=== PATIENT | male | born 1945 | race Caucasian/White ===

== ENCOUNTER 2018-04-19 08:32 | Inpatient (IN) | payer MEDICARE ==
[~2018-04-19 08:32] MED LIST: Acetaminophen TAB* 325 MG PO ONE; Buffered Lidocaine 1% SYRIN* 1 ML/SYRINGE INTRADERM ONE; Famotidine IV* 10 MG/ML 2 ML (20 mg) IV ONE; Gabapentin CAP(*) 300 MG PO ONE; Lactated Ringers 1000 ML Bag* 1,000 ML IV SCH; Naproxen TAB* 250 MG PO ONE
--- OUTSIDE RECORDS SUMMARY | 2018-04-19 08:37 | XMS REPORT | Continuity of Care Document ---
:1945 External Reference #:[id number] Author Name Betina Palafox Care Team Providers Name Role Phone Italia Kruse MD Primary Care Physician Unavailable Payers Type Date Identification Numbers Payment Provider Subscriber Policy Number: [id number] Medicare Blue Ppo Dameon Myles PayID: [id number] [address] [address] [place] [address] Advance Directives Description No Information Available Problems Date Description Provider Status Onset: 03/26/2018 Pain due to internal orthopedic Alexy Gaxiola M.D. Active prosthetic devices, implants and grafts, initial encounter Onset: 03/26/2018 Prosthetic arthroplasty of the hip Alexy Gaxiola M.D. Active Family History Date Family Member(s) Problem(s) Comments General Diabetes General Heart Disease General Hypertension General Stroke Social History Type Date Description Comments Sex Unknown Lives With Spouse Occupation Retired Tobacco Use Start: Unknown Patient has never smoked Smoking Status Reviewed: 03/26/18 Patient has never smoked Allergies, Adverse Reactions, Alerts Date Description Reaction Status Severity Comments 02/18/2018 Brilinta Active panic attack 02/18/2018 Allopurinol Active itching Medications Medication Date Status Form Strength Qnty SIG Indications Ordering Provider Ultram 03/04 Active Tablets 50mg 90tab 2 tab every M25.551 /2018 s 6 hours as Minor, needed for M.D. pain, take with 2 regular strength tylenol Metoprolol Active Tablets 50mg 1 by mouth Unknown Succinate ER /0000 ER 24HR every day Atorvastatin Active Tablets 40mg 1 by mouth Unknown Calcium / every day Terazosin HCL Active Capsules 1mg take 1 Unknown / capsule by mouth everyday at bedtime Chlorthalidone Active Tablets 25mg 1 by mouth Unknown /0000 every day Uloric Active Tablets 40mg 1 by mouth Unknown /0000 every day Amlodipine 00 Active Tablets 10mg 1 by mouth Unknown Bes every day Aspirin Active Tablets 81mg 1 by mouth Unknown /0000 DR every day Vitamin D 00 Active Tablets 1000Unit by mouth Unknown /0000 everyday Garlic Active Capsules 1000mg 2 by mouth Unknown /0000 every day Calcium Carbonate Active Unknown / Magnesium Active Unknown / Methylprednisolone 02/18 Hx TBPK 4mg 21uni medrol M25.551 ts dosepak F - take as Bernard, 03/03 instructed Immunizations Description No Information Available Vital Signs Date Vital Result Comment 03/26/2018 9:08am Height 70 inches 5'10" Weight 249.00 lb Heart Rate 76 /min BP Systolic Recheck 132 mmHg BP Diastolic Recheck 84 mmHg Respiratory Rate 16 /min Body Temperature 97.9 F BMI (Body Mass Index) 35.7 kg/m2 03/04/2018 11:27am Height 70 inches 5'10" Weight 245.00 lb Heart Rate 84 /min BP Systolic Recheck 142 mmHg BP Diastolic Recheck 84 mmHg Respiratory Rate 16 /min Body Temperature 98.0 F BMI (Body Mass Index) 35.1 kg/m2 02/18/2018 9:48am Height 70 inches 5'10" Weight 245.00 lb BP Systolic 160 mmHg BP Diastolic 90 mmHg Respiratory Rate 20 /min Body Temperature 98.3 F Pain Level 5 BMI (Body Mass Index) 35.1 kg/m2 Results Description No Information Available Procedures Date Code Description Status 11/16/2012 78185 ECHO Transthorasic Realtime 2D W Doppler & Color Flow Hosp Completed Encounters Type Date Location Provider Dx Diagnosis Office Visit 03/04/2018 Orthopedic Alexy Gaxiola, M25.551 Pain in right hip 11:30a [facility] Z96.641 Presence of right artificial hip joint T84.84xA Pain due to internal orthopedic prosth dev/grft, init Office Visit 02/18/2018 9:15a Orthopedic Ronal Sharma M25.551 Pain in [facility] MD right hip Z96.641 Presence of right artificial hip joint M61.9 Calcification and ossification of muscle, unspecified Plan of Treatment 03/26/2018 - Alexy Gaxiola M.D.T84.84xA Pain due to internal orthopedic prosthetic devices, [id number] Presence of right artificial hip jointFollow up:4 weeks after surgery
[2018-04-19] MEDS ORDERED: Famotidine IV* 10 MG/ML 2 ML (20 mg) ONE (09:01)
[2018-04-19] MEDS ORDERED: Gabapentin CAP(*) 300 MG ONE (09:01)
[2018-04-19] MEDS ORDERED: Dexamethasone IV* 4 MG/ML 1 ML (4 MG) ONE (09:02)
[2018-04-19] MEDS ORDERED: Propofol* 10 MG/ML 20 ML BTL ONE (09:02)
[2018-04-19] MEDS ORDERED: Midazolam* 1 MG/ML 5 ML VIAL (5 MG) ONE (09:02)
[2018-04-19] MEDS ORDERED: fentaNYL* 50 MCG/ML 5 ML VIAL (250 MCG VIAL) ONE ×4 (09:02→15:59)
[2018-04-19] MEDS ORDERED: Lidocaine 2% PF * 5 ML VIAL ONE (09:02)
[2018-04-19] MEDS ORDERED: Ondansetron INJ* 2 MG/ML VIAL ONE (09:02)
[2018-04-19] MEDS ORDERED: Acetaminophen TAB* 325 MG ONE ×2 (09:02→09:17)
[2018-04-19] MEDS ORDERED: ceFAZolin 2 GM PREMIX in ORs 2 GM/50 ML BAG IVPB ONE ×2 (09:02→15:06)
[2018-04-19] MEDS ORDERED: Vancomycin(*) 1,000 MG VIAL ONE ×2 (09:45→10:30)
[2018-04-19] MEDS ORDERED: Methylene Blue 0.5 %* 50 MG/10 ML AMP IV ONE (09:46)
[2018-04-19] MEDS ORDERED: Phenylephrine INJ* 10 MG/ML 1 ML VIAL (10 MG) ONE (09:48)
[2018-04-19] MEDS ORDERED: Lidocaine 1% MPF wEPI 200,000* 30 ML SDV ONE ×2 (10:30→16:29)
[2018-04-19] MEDS ORDERED: Bupivacaine 0.5%* 50 ML VIAL ONE ×2 (10:31→16:29)
[2018-04-19] MEDS ORDERED: Rocuronium* 10 MG/ML VIAL ONE (10:40)
[2018-04-19] MEDS ORDERED: EPHEDrine (Pressors)* 50 MG/ML VIAL ONE (11:25)
[2018-04-19] MEDS ORDERED: HYDROmorphone INJ1* 1 MG/ML SYRINGE ONE (12:17)
[2018-04-19] MEDS ORDERED: Furosemide IV* 10 MG/ML 2 ML VIAL (20 MG) ONE (14:15)
[2018-04-19 15:52] LABS: Hematocrit 34 % (42-52); Hemoglobin 11.5 g/dl (14.0-18.0)
[2018-04-19] MEDS ORDERED: VASOPRESSIN 20 UNITS/ML 1 ML VIAL ONE (16:24)
[2018-04-19] MEDS ORDERED: Lidocain 1% EPI 1:100,000 * 30 ML MDV ONE (16:29)
[2018-04-19] MEDS ORDERED: Ondansetron INJ* 2 MG/ML VIAL IV PRN ×2 (16:57→17:14)
[2018-04-19] MEDS ORDERED: fentaNYL* 50 MCG/ML 2 ML VIAL (100 MCG VIAL) IV PRN (16:57)
[2018-04-19] MEDS ORDERED: Naloxone* 0.4 MG/ML 1 ML VIAL IV PRN (16:57)
[2018-04-19] MEDS ORDERED: diPHENhydraMINE IV* 50 MG/ML 1 ml VIAL (BENADRYL) IV PRN (17:14)
[2018-04-19] MEDS ORDERED: Magnesium Hydroxide LIQ* 30 ML UDC PO PRN (17:14)
[2018-04-19] MEDS ORDERED: Ondansetron ODT TAB* 4 MG PO PRN (17:14)
[2018-04-19] MEDS ORDERED: Cyclobenzaprine TAB* 10 MG PO PRN (17:14)
[2018-04-19] MEDS ORDERED: Morphine VIAL* 4 MG/ML VIAL (1 ml vial) IV PRN (17:14)
[2018-04-19] MEDS ORDERED: diPHENhydraMINE PO* 25 MG PO PRN (17:14)
[2018-04-19] MEDS ORDERED: Clobetasol 0.05% OINT* 30 GM TUBE TOPICAL PRN (17:24)
[2018-04-19] MEDS ORDERED: fentaNYL* 50 MCG/ML 2 ML VIAL (100 MCG VIAL) ONE (18:26)
[2018-04-19 19:14] LABS: Hematocrit 28 % (42-52); Hemoglobin 9.5 g/dl (14.0-18.0)
[2018-04-19] MEDS: D5W 1/2 NS 1000 ML BAG* 1,000 ML IV SCH (20:35)
[2018-04-19] MEDS ORDERED: Warfarin TAB(*) 10 MG PO ONE (21:00)
[2018-04-19] MEDS: Prenatal Vitamin TAB PO SCH (22:01)
--- NOTE | 2018-04-19 22:01 | OP ---
DATE OF OPERATION: 04/19/18 - ROOM #346 DATE OF : 45 SURGEON: Alexy Gaxiola MD TOOTH CUTTER CONTACT WHEEL: Dakota Bnenett RPA ANESTHESIA: General. 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 OPERATIVE PROCEDURE: Revision right total hip arthroplasty. INDICATIONS: Mr. Myles is a 72-year-old male who had a zupvi-io-kwsiy hip replacement done in 2005. He had done well postoperatively, but in January had sudden onset of very sharp pain about the right hip and was unable to even weight bear. A Medrol Dosepak had helped so that he could even weight bear, but he still had very specific troubles with pain. It could be seen by x-rays how he had a luibx-hs-dcsip hip and a CAT scan showed some very specific damage of the proximal femur with cystic changes and what appeared to be a pseudocapsule. He did undergo a workup consisting of a bone scan, which the radiologist thought may have shown some loosening of the femoral stem, as the stem was outlined to a certain degree. I also had the pseudocyst injected and the pseudocysts were not large, but were still about the hip. I discussed with Mr. Myles that revising the hip should work well. We would need to remove the [id number] interface; it can cause troubles from both the trunnion as well as the articulation and once I had gotten what his implants were, knew he had a one-piece acetabulum. I discussed with him that hopefully his femoral component would be loose so that it would be easily removed and then we would use the special acetabular equipment to remove the cup and then place a new femoral stem and acetabular component. Risks of surgery such as infection, scar formation, stiffness, DVT, leg length discrepancy, and instability were some of the risks discussed. He had been declared medically optimized and wished to proceed. Dakota Bennett was present for all aspects of the case from positioning to the approach to taking out the components to putting in a new set of components and closing and the case could not have been done without an miner assistant. ESTIMATED BLOOD LOSS: 1250 cc. COMPLICATIONS: None. HARDWARE: Jarrett ZMR size B body with 15 x 135 revision taper stem, +0 36 mm head, 62 mm Multi-Hole Continuum acetabular cup with Longevity liner. DESCRIPTION OF PROCEDURE: The patient was brought to the OR and general anesthesia was introduced. Ambriz catheter was placed. He was then rolled into the left lateral decubitus position. Care was taken to make sure that the cubital tunnel was nice and free and axillary roll was nicely placed. Right hip area was prepped and then draped. Skin over the incision was infiltrated using 0.25% Marcaine and 1% lidocaine with epinephrine and an incision was made a bit larger than his original posterior incision. Incision was carried down through the skin and subcutaneous tissues. Small bleeders encountered were ligated using electrocautery. Fascia was exposed and fascia was then sharply incised. Blunt dissection was carried out proximally. He had reformed a bit of his trochanteric bursa and this was taken down using electrocautery as well. I believe that I could feel the edge of his abductors and using this as my guide coming down to the tip of the greater troch, soft tissues were taken down using electrocautery so that I would peel the capsule and scar all together from the backside of the greater trochanter. Working this way, I came into the hip joint and a thick brackish sort of material was encountered. Some of this was sent for cultures as well as pathology. With continued dissection, it could be seen where this was the material within the pseudocyst as I would place a retractor which would then compress an area and more of this material would ooze forward. With continued dissection, I was able to expose most of the trunnion and eventually, hip was nicely dislocated. Head was easily removed and it could be seen where there was very specific black material within the head itself and how the neck had threaded where the head had been as well. There was quite a bit of cyst which had destroyed part of the bone, but the bone that was present was in good condition. Curette was used to scrape some of that area to clean up some of the brackish material and a flexible osteotome was used to come downwards. Stem appeared to be quite solid and using the osteotomes, I thought I would be able to separate quite easily. The stem; however, did not budge. I continued using the osteotomes and then switching back and forth, trying to back flap the stem out, but I was not achieving any sort of success. After this was worked on for 2 hours, decision was made to make an extended trochanteric osteotomy. This incision was extended along the shaft of the femur and again carried down through the skin and subcutaneous tissues. Small bleeders encountered were ligated using electrocautery. Fascia over the vastus lateralis was sharply incised and lateral aspect of the femur was nicely exposed. Using blunt Hohmann, I was able to come around and then using an osteotome, I was able to start making an osteotomy coming downwards and I came down for a good 80% of the length of the stem. Then, I came across on the lateral cortex and then I came in posteriorly using the osteotomes as well. I was able to eventually crack the bone with it and then with shifting the bone I saw that he still had a few good connections and again using the thin osteotomes, these were . The stem still would not come. Thin osteotome was then used distally to see perhaps if he had grown into the smooth area of the stem as well and again, this did not result in any sort of satisfaction. Part of the soft tissues posteriorly were then all taken down so that the entire part of the osteotomy could be flipped upwards and continued dissection was carried out until with the osteotomy up, almost the entirety of the stem was exposed and it still would not budge. With the vice salvage machine operator gripping the stem without even pushing on any of the bone, I could still rock his femur. The handle for the Taperloc did not fit, so I was using a vice psychiatric attendant to psychiatric attendant onto the trunnion and then flapping it and I broke two vise salvage machine operator this way. With trying to use the trunnion from the stem hook from the Jarrett system , it was clear that it did not fit, but with trying to back flap the hook into so that it would slide on, this eventually did give satisfaction and the stem came right out. There was still a little bit of bone attached, but I did not lose much bone at all along with stem. Wound had been copiously pulse lavaged throughout and over 10 L would have been used. With the stem out, a little bit more of the pseudocyst material was able to be scraped out from the shaft of the femur and attention was returned to the acetabulum. Anterior C retractor was placed as was a Sarah inferiorly and using the acetabular cutting guide, I was able to seat the edge of the knife around and slowly cut around first with a shallow knife and then with a deeper knife and I was able to spin as well. When I spun the first time using the short blade, I was able to cut all of the capsule as well and this capsule with the metallosis was all sent for pathology as well. Continuing with the cutters this way, I was eventually to come just about all of the way around and using the tamps just with tamping from one side to the other, the shell then locked and I was able to remove the shell nicely. I did have a small defect from about the 9 o'clock to 10:30 position, but I had a nice floor and wall inside the cup and I did not think that that area would cause any problems. Beginning with a 57 reamer, he was progressively reamed and I had a nice sszn-zq-ahmp fit and nice bleeding bone with a 61 reamer. A 62-mm cup was then impacted into place and three screws were placed. Good bite was obtained with all three. Trial liner was placed and attention was returned to the femur. Using the cables, the osteotomy was repaired and femur moved nicely as one unit. He still had a pedestle that I had not broken through, so using the canal finder, I was able to push through that so that eventually I could push with the 9 reamer. Beginning with a 9 reamer, I templated him for a 13.5, but the stem started at 14, so I needed to get to at least a 14.5 reamer. I was able to progressively ream him quite well. Trial was then assembled on the back table and tried and this came together quite nicely with a 0 head. His leg length now appeared to be perfect as he had been a quarter inch short and his preference was that we would try to fix that if it could be fixed. With the stability he could be flexed up and the osteotomy started to stress once he hit about 90 degrees and then with internal rotation stressed even more, so he was not pushed further. Coming back to about 60 degrees in full adduction, he did not lever out and then with internal rotation to 30 degrees he did not lever out. Coming into extension, he was able to come to about 30 degrees of extension with external rotation and was also nice and stable. Trial instrumentation was removed and the hip was again copiously pulse lavaged. Implant was being prepared. Implant was then impacted into place and he was trialed again with a 0 head. He seemed to have the same wonderful motion, stability and leg length. The 0 head was then impacted into place and the hip was reduced. Where I had come through the fascia for the vastus lateralis, this was repaired using a running stitch as well as some of the soft tissues that I had peeled away from the backside of the femur were brought back up. I was able to pass a stitch through his greater trochanter and then drill through a different area of his greater trochanter to help with bringing the repair back up. Wound was pulse lavaged with bacitracin and sprinkled with vancomycin. Fascia was closed using interrupted #1 Vicryl sutures. Pulse with Betadine was again performed and the subcutaneous tissues were reapproximated with 2-0 Vicryl. Skin was closed using roland. Sterile dressing and abduction pillow were applied in the OR. The patient was then extubated in the OR and was stable on transfer to the recovery room. [id number]/[facility] #: [id number] DAVID
[2018-04-19] MEDS: Magnesium Hydroxide LIQ* 30 ML UDC PO SCH (22:02)
[2018-04-19] MEDS: Docusate CAP* 100 MG PO SCH (22:02)
[2018-04-19] MEDS: Terazosin CAP* 1 MG PO SCH (22:02)
[2018-04-19] MEDS: Atorvastatin* 40 MG TAB PO SCH (22:02)
[2018-04-19] MEDS: traMADol TAB* 50 MG PO SCH (22:02)
[2018-04-19] MEDS: Acetaminophen TAB* 325 MG PO SCH (22:03)
[2018-04-19] MEDS: ceFAZolin 1 GM ADVAN(*) 1 GM in NS 0.9% 50 ML* 50 ML IVPB SCH (22:59)
[2018-04-20] MEDS: oxyCODONE TAB* 5 MG TAB PO PRN ×3 (01:48→12:58)
[2018-04-20] MEDS: traMADol TAB* 50 MG PO SCH ×4 (03:21→20:45)
[2018-04-20] MEDS: Acetaminophen TAB* 325 MG PO SCH ×3 (05:56→20:44)
[2018-04-20 06:22] LABS: INR 1.14 (0.77-1.02)
[2018-04-20 06:25] LABS: Hematocrit 24 % (42-52); Hemoglobin 7.9 g/dl (14.0-18.0); Mean Platelet Volume 8.1 fL (7.4-10.4); Platelet Count 167 10^3/ul (150-450)
[2018-04-20 06:32] LABS: BUN/Creatinine Ratio 14.3 (8-20); Calcium 7.8 mg/dL (8.6-10.3); EGFR African American 24.3 (>60); EGFR Non-African American 20.1 (>60); Potassium 4.3 mmol/L (3.5-5.0)
[2018-04-20] MEDS: ceFAZolin 1 GM ADVAN(*) 1 GM in NS 0.9% 50 ML* 50 ML IVPB SCH (06:39)
[2018-04-20] MEDS: D5W 1/2 NS 1000 ML BAG* 1,000 ML IV SCH (06:40)
[2018-04-20] MEDS: CMCS: Febuxostat(NF) 40 MG TAB PO SCH (08:17)
[2018-04-20] MEDS: amLODIPine TAB* 5 MG PO SCH (08:17)
[2018-04-20] MEDS: Aspirin EC TAB* 81 MG TAB.EC PO SCH (08:17)
[2018-04-20] MEDS: Magnesium Hydroxide LIQ* 30 ML UDC PO SCH ×2 (08:18→20:45)
[2018-04-20] MEDS: Docusate CAP* 100 MG PO SCH ×2 (08:18→20:45)
[2018-04-20] MEDS: Metoprolol Succinate XL TAB* 50 MG PO SCH (08:18)
[2018-04-20] MEDS: Lactated Ringers 1000 ML Bag* 1,000 ML IV SCH ×3 (08:27→17:42)
[2018-04-20] MEDS ORDERED: Chlorthalidone TAB* 50 MG PO SCH (09:00)
--- NOTE | 2018-04-20 09:25 | PN ---
Progress Note - Progress Note Date of Service: 04/20/18 SOAP: Subjective: []Patient seen at bedside. He has 5/10 right hip pain that he considers tolerable at this time, pain is worse with any movement. He has been TTWB on the RLE. Denies chest pain, dizziness or nausea. He feels he is breathing well at rest but is unable to get a full deep breath. Denies history of DVT or PE. Two sisters are nurses, I spoke with one on the telephone today. Objective: []General: NAD RLE: Right hip dressing CDI, thigh is soft, DF/PF intact, DP2+, sensation intact to light touch distally. Calves supple and nontender without erythema, edema or palpable cords Assessment: []POD 1 sp revision of right total hip arthroplasty with Dr Gaxiola 04/19 Plan: []TTWB RLE 1 unit PRBC for acute bloodloss anemia, goal to keep hgb above 8, recheck H&H this afternoon Acute on chronic renal impairment. Requires renal dosing of meds, fluid Continue PT/OT: careful assessment for safe discharge plan, understands he may need rehab. PMRU referral in Vital Signs Temp 98.0 F 04/20/18 07:24 Pulse 78 04/20/18 07:24 Resp 16 04/20/18 08:21 BP 119/68 04/20/18 07:24 Pulse Ox 99 04/20/18 07:24 Intake & Output 04/19/18 04/20/18 04/20/18 18:59 06:59 18:59 Intake Total 6200 1869 203 Output Total 65 Balance 6200 1804 203 Weight 253 lb Intake: IV Fluids 6200 1149 148 ABX - CEFAZOLIN 50 D5W 1/2 NS 148 LR 6200 1099 IVPB 55 ABX - CEFAZOLIN 55 Oral 720 Output: Ambriz 65 Laboratory Last Values Hgb 7.9 g/dl (14.0-18.0) L 04/20/18 05:56 Hct 24 % (42-52) L 04/20/18 05:56 Plt Count 167 10^3/ul (150-450) 04/20/18 05:56 MPV 8.1 fL (7.4-10.4) 04/20/18 05:56 INR (Anticoag Therapy) 1.14 (0.77-1.02) H 04/20/18 05:56 Sodium 137 mmol/L (135-145) 04/20/18 05:51 Potassium 4.3 mmol/L (3.5-5.0) 04/20/18 05:51 Chloride 107 mmol/L (101-111) 04/20/18 05:51 Carbon Dioxide 22 mmol/L (22-32) 04/20/18 05:51 Anion Gap 8 mmol/L (2-11) 04/20/18 05:51 BUN 44 mg/dL (6-24) H 04/20/18 05:51 Creatinine 3.08 mg/dL (0.67-1.17) H 04/20/18 05:51 Est GFR ( Amer) 24.3 (>60) 04/20/18 05:51 Est GFR (Non-Af Amer) 20.1 (>60) 04/20/18 05:51 BUN/Creatinine Ratio 14.3 (8-20) 04/20/18 05:51 Glucose 183 mg/dL (70-100) H 04/20/18 05:51 Calcium 7.8 mg/dL (8.6-10.3) L 04/20/18 05:51 Blood Type A Negative 04/20/18 05:51 Crossmatch See Detail 04/20/18 05:51
[2018-04-20] MEDS: Heparin VIAL(*) 5000 UNITS/ML VIAL (FIVE THOUSAND) SUBCUT SCH ×3 (12:59→23:28)
[2018-04-20] MEDS ORDERED: Lactated Ringers 1000 ML Bag* 1,000 ML IV SCH (16:00)
--- NOTE | 2018-04-20 16:09 | PN ---
Subjective Date of Service: 04/20/18 Interval History: HOSPITALIST PROGRESS NOTE Patient seen and examined at bedside. Care reviewed and d/w Ashanti Ayon RN. He feels better this AM. Pain is controlled. Denies chest pain, palpitations, dyspnea. Has not voided since Ambriz removed. Family History: Unchanged from Admission Social History: Unchanged from Admission Past Medical History: Unchanged from Admission Objective Active Medications: Acetaminophen (Tylenol Tab*) 975 mg PO Q8H [facility] Last Admin: 04/20/18 12:58 Dose: 975 mg Amlodipine Besylate (Norvasc Tab*) [facility] [place] Admin: 04/20/18 08:17 Dose: 10 mg Aspirin (Aspirin Ec Tab*) 81 [facility] [place] Admin: 04/20/18 08:17 Dose: 81 mg Atorvastatin Calcium (Lipitor*) 40 mg PO QPM [facility] Last Admin: 04/19/18 22:02 Dose: 40 mg Chlorthalidone (Hygroton Tab*) 25 [facility] [place] Admin: 04/20/18 08:24 Dose: 25 mg Clobetasol Propionate (Clobetasol 0.05% Oint*) 1 applic TOPICAL DAILY PRN PRN Reason: ITCHY DRY SKIN Cyclobenzaprine HCl (Flexeril Tab*) 10 mg PO TID PRN PRN Reason: SPASMS Diphenhydramine HCl (Benadryl Iv*) 25 mg IV Q6H PRN PRN Reason: itching Diphenhydramine HCl (Benadryl Po*) 25 mg PO Q6H PRN PRN Reason: itching Docusate Sodium (Colace Cap*) 100 mg PO BID [facility] Last Admin: 04/20/18 08:18 Dose: 100 mg Febuxostat (Uloric(Nf)) 40 mg PO QAM [facility] Last Admin: 04/20/18 08:17 Dose: 40 mg Heparin Sodium (Porcine) (Heparin Vial(*)) 5,000 units SUBCUT Q8HR [facility] Last Admin: 04/20/18 13:01 Dose: Not Given Lactated Ringer's (Lactated Ringers 1000 Ml Bag*) 1,000 mls @ 150 mls/hr IV PER RATE [facility] Last Admin: 04/20/18 15:50 Dose: 150 mls/hr Cefazolin Sodium 1 gm/ Sodium (Chloride) 50 mls @ 200 mls/hr IVPB Q12HR [facility] Stop: 04/20/18 18:44 Lactated Ringer's (Lactated Ringers 1000 Ml Bag*) 1,000 mls @ 0 mls/hr IV WIDE OPEN [facility] Stop: 04/20/18 23:59 Lactulose (Lactulose*) 30 ml PO BID PRN PRN Reason: CONSTIPATION Magnesium Hydroxide (Milk Of Magnesia Liq*) 30 ml PO BID [facility] Last Admin: 04/20/18 08:18 Dose: 30 ml Magnesium Hydroxide (Milk Of Magnesia Liq*) 30 ml PO Q6H PRN PRN Reason: constipation Metoprolol Succinate (Toprol Xl Tab*) 50 mg PO QAM [facility] Last Admin: 04/20/18 08:18 Dose: 50 mg Morphine Sulfate (Morphine Vial*) 2 mg IV Q2H PRN PRN Reason: PAIN - BREAKTHROUGH Multivitamins ( Vitamin Tab*) 1 tab PO QPM [facility] Last Admin: 04/19/18 22:01 Dose: Not Given Ondansetron HCl (Zofran Inj*) 4 mg IV Q6H PRN PRN Reason: nausea Ondansetron HCl (Zofran Odt Tab*) 4 mg PO Q6H PRN PRN Reason: NAUSEA Oxycodone HCl (Roxycodone Tab*) 10 mg PO Q4H PRN PRN Reason: PAIN - SEVERE Last Admin: 04/20/18 12:58 Dose: 10 mg Pharmacy Profile Note (Coumadin Daily Reminder*) 1 note FOLLOW UP 1700 [facility] Terazosin HCl (Hytrin Cap*) 1 mg PO BEDTIME [facility] Last Admin: 04/19/18 22:02 Dose: 1 mg Tramadol HCl (Ultram*) 50 mg PO Q12H [facility] Last Admin: 04/20/18 08:42 Dose: Not Given Warfarin Sodium (Coumadin Tab(*)) 8 mg PO ONCE@1700 [facility]; Protocol Stop: 04/20/18 17:01 Vital Signs - 8 hr 04/20/18 04/20/18 04/20/18 08:20 08:21 10:20 Respiratory 16 16 18 Rate 04/20/18 12:58 Respiratory 16 Rate Oxygen Devices in Use Now: Nasal Cannula Appearance: Obese gentleman sitting up in bed in [facility]. Eyes: No Scleral Icterus Ears/Nose/Mouth/Throat: Mucous Membranes Moist Neck: Trachea Midline Respiratory: Symmetrical Chest Expansion and Respiratory Effort, Clear to Auscultation Cardiovascular: RRR - Normal S1 and S2 Abdominal: NL Sounds; No Tenderness; No Distention - obese Extremities: - - Right hip CDI Neurological: Alert and Oriented x 3, NL Muscle Strength and Tone Result Diagrams: 04/20/18 05:56 04/20/18 05:51 Assess/Plan/Problems-Billing Assessment: Mr Myles is a72yo M with PMH of CKD stage 3, diastolic CHF, CAD s/p 1 vessel CABG with AVR, HLD, BPH, HTN, peripheral neuropathy, gout, who underwent right hip arthroplasty revision 04/19/[address] Gaxiola. - Patient Problems (1) History of revision of total replacement of right hip joint Comment: - Management as per Ortho. (2) Acute blood loss anemia Comment: - EBL >1000ml. Hb was 15.7 prior to surgery, 7.9 today - will transfuse 1 PRBC. Goal Hb>8.0. - Monitor H/H. (3) GI (acute kidney injury) Comment: - Pre renal in the setting of significant blood loss and know CKD. - Continue fluid resuscitation (PRBC and IVF). - Has not voided since Ambriz was removed - will repeat BMP and replace Ambriz. - Nephrology consult requested. (4) Diastolic CHF Comment: - Stable - as per records patient's last EF was 60% with normal functioning AV. - Monitor in the setting of IVF. (5) CAD (coronary artery disease) Comment: - Stable. - Continue Aspirin, Atorvastatin, Metoprolol. (6) BPH (benign prostatic hyperplasia) Comment: - Continue Terazosin. (7) DVT prophylaxis Comment: - Heparin/Warfarin as per Ortho. (8) Full code status Status and Disposition: Hospitalist service will continue to follow with you.
[2018-04-20] MEDS ORDERED: Warfarin TAB(*) 4 MG PO ONE (17:00)
[2018-04-20] MEDS: Atorvastatin* 40 MG TAB PO SCH (17:32)
[2018-04-20] MEDS: Prenatal Vitamin TAB PO SCH (17:34)
[2018-04-20 17:41] LABS: Hematocrit 21 % (42-52); Hemoglobin 7.2 g/dl (14.0-18.0)
[2018-04-20 17:55] LABS: BUN/Creatinine Ratio 13.4 (8-20); Calcium 7.3 mg/dL (8.6-10.3); EGFR African American 18.6 (>60); EGFR Non-African American 15.4 (>60); Potassium 4.2 mmol/L (3.5-5.0)
[2018-04-20] MEDS ORDERED: ceFAZolin 1 GM ADVAN(*) 1 GM in NS 0.9% 50 ML* 50 ML IVPB SCH (18:30)
[2018-04-20 19:33] LABS: Urine Appearance Cloudy; Urine Bacteria 1+ (Absent); Urine Bilirubin Negative (Negative); Urine Blood 2+ (Negative); Urine Color Yellow; Urine Glucose Negative (Negative); Urine Ketones Trace (Negative); Urine Nitrite Negative (Negative); Urine Protein 1+(30 mg/dL) (Negative); Urine Red Blood Cell 3+(>10/hpf) (Absent); Urine Specific Gravity 1.014 (1.010-1.030); Urine Squamous Epithelial Cell Present (Absent); Urine Urobilinogen Negative (Negative); Urine White Blood Cell 2+(11-20/hpf) (Absent)
--- NOTE | 2018-04-20 19:51 | PN ---
Hospitalist Progress Note Date of Service: 04/20/18 Labs reviewed Laboratory Tests 04/20/18 04/20/18 17:30 17:30 Hgb 7.2 L Hct 21 L Sodium 133 L Potassium 4.2 Chloride 102 Carbon Dioxide 22 Anion Gap 9 BUN 52 H Creatinine 3.88 H Ambriz was replaced and we will continue to monitor his UO - s/o to Dr Berry - may need more fluids after transfusion. Will give 2 more PRBCs. Case d/c Dr Liao - agrees with current management.
[2018-04-20] MEDS: Terazosin CAP* 1 MG PO SCH (20:45)
--- NOTE | 2018-04-20 23:49 | CONS ---
[facility] MEDICINE CONSULTATION REPORT: DATE OF CONSULT: 04/19/18 PROVIDER: Amira Eric NP ATTENDING PHYSICIAN: Dr. Gaxiola. CONSULTING PHYSICIAN: Dr. Marianela Berry (dictated by Amira Eric NP) REASON FOR CONSULT: Co-management of chronic medical conditions. HISTORY OF PRESENT ILLNESS: Mr. Myles is a 72-year-old male with a past medical history significant for bicuspid aortic valve with severe stenosis and regurgitation, status post aortic valve replacement at [facility] in July 2015 with tissue prosthesis, history of atrial fibrillation, hypertension, chronic kidney disease, CAD, high cholesterol, BPH, gout, who presented to [facility] for an elective right total hip revision with Dr. Gaxiola. Please see complete dictated H and P from Ivis Davila RPA, for complete details. In brief, the patient failed conservative measures, so opted for an elective right total hip revision with Dr. Gaxiola. Due to his chronic medical conditions, we were asked to see in consult for co-management of his chronic medical conditions. PAST MEDICAL HISTORY: Significant for: 1. Chronic kidney disease. 2. Hypertension. 3. Left ventricular hypertrophy. 4. Acne rosacea. 5. CAD. 6. History of aortic valve replacement. 7. Coronary artery bypass graft x1. 8. Hyperlipidemia. 9. BPH. 10. Gout. 11. Idiopathic peripheral neuropathy. PAST SURGICAL HISTORY: 1. Joint replacement in both hips. 2. Right ganglion cyst removed in December of 2009. 3. Angioplasty with 1 stent placement in February of 2015. 4. CABG with aortic valve replacement on 08/03/15. HOME MEDICATIONS: Include: 1. Tramadol 1 to 2 tablets every 6 hours as needed. 2. Amlodipine 10 mg p.o. daily. 3. Terazosin cap 1 mg p.o. at bedtime. 4. Multivitamin 1 tablet p.o. q.p.m. 5. Metoprolol succinate 50 mg p.o. q.a.m. 6. Garlic 1 tablet q.a.m. 7. Uloric 40 mg p.o. q.a.m. 8. Vitamin D 1000 units p.o. at bedtime. 9. Chlorthalidone 25 mg p.o. q.a.m. 10. Calcium with vitamin D 1 tab p.o. daily. 11. Calcium with vitamin D 1 tablet p.o. q.p.m. 12. grape seed 1 tablet q.p.m. 13. Atorvastatin 40 mg p.o. q.p.m. 14. Aspirin 81 mg p.o. q.a.m. 15. Acetaminophen 1 to 2 tablets every 6 hours as needed. ALLERGIES: 1. ALLOPURINOL. 2. HYDROXYZINE. 3. TICAGRELOR. 4. BRILINTA. FAMILY HISTORY: Father with a history of heart disease, congestive heart failure. No reports of diabetes or cancer within the family. SOCIAL HISTORY: The patient is . He has 4 children. He lives with his . Surrogate decision-maker in the event he is unable to make his own decision is his , Germain. Denies any use of illicit drugs. He does report he drinks alcohol socially. The patient has never smoked. REVIEW OF SYSTEMS: The patient denies any fever, chills. Denies any recent illnesses. Denies any cough, hemoptysis or shortness of breath. The patient is drowsy post anesthesia from his surgery. He has no complaints at this time. He denies any diarrhea, arthralgias, myalgias, open rashes, or lesions. PHYSICAL EXAM: Temperature was 97.7, heart rate was 85, respirations 18, O2 saturation 97%, and blood pressure 105/64. General: Mr. Myles is a 72-year- old male, resting in bed in his room. He is in no acute distress. He opens his eyes to verbal stimulation, but he is very drowsy. HEENT: Head is atraumatic, normocephalic. Eyes: EOMs are intact. Sclerae are anicteric and not pale. Oral mucosa appeared to be moist. Neck is supple. Respirations are easy and even. Abdomen is rounded and soft. He is able to move all 4 extremities with 5/5 strength. Pedal pulses are +2 bilaterally. There is no clubbing or cyanosis noted to the extremities. LABORATORY DATA: WBCs were 13.4 on 03/03/18, RBCs 5.01, hemoglobin 15, hematocrit was 47, platelet count was 226, H and H on 04/19/15 at 1541 was 11.5 and 34. IMPRESSION AND PLAN: Mr. Myles is a 72-year-old male with a past medical history significant for chronic kidney disease, hypertension, chronic coronary artery disease, history of aortic valve replacement, hyperlipidemia, BPH, who presented to [facility] for an elective right hip revision with Dr. Gaxiola. Due to his chronic medical conditions, we were asked to see in consult and co- management of his chronic medical conditions. Our recommendations are as follows: 1. Status post right total hip revision. Management per Orthopedics, PT/OT per Orthopedics, bowel regimen per Orthopedics, pain management per Orthopedics , DVT prophylaxis per Orthopedics. 2. Hypertension. We will continue on Norvasc 10 mg p.o. daily. 3. Coronary artery disease. We will continue on metoprolol 50 mg p.o. q.a.m. and chlorthalidone 25 mg p.o. q.a.m., atorvastatin 40 mg p.o. q.a.m. and aspirin 81 mg when able per Orthopedics. 4. DVT prophylaxis per Orthopedics. 5. Diet. He can have heart healthy, caffeine-okay diet. 6. Code status is full code. TIME SPENT: Time spent on this consultation was 45 minutes; more than half that time was spent at the bedside reviewing events leading thus far to this hospitalization, performing my physical exam, and reviewing my plan of care. I have discussed this with my attending, Dr. Marianela Berry and she is in agreement with my plan. AMIRA ERIC, [employer] SUPER[employer]OR [id number]/[facility] #: [id number] DAVID
[2018-04-21] MEDS: Acetaminophen TAB* 325 MG PO SCH ×3 (05:39→21:01)
[2018-04-21] MEDS: Heparin VIAL(*) 5000 UNITS/ML VIAL (FIVE THOUSAND) SUBCUT SCH ×3 (05:40→20:59)
[2018-04-21 06:11] LABS: Hematocrit 25 % (42-52); Hemoglobin 8.8 g/dl (14.0-18.0); Mean Platelet Volume 8.1 fL (7.4-10.4); Platelet Count 112 10^3/ul (150-450)
[2018-04-21 06:17] LABS: INR 2.07 (0.77-1.02)
[2018-04-21 06:25] LABS: BUN/Creatinine Ratio 14.6 (8-20); Calcium 7.5 mg/dL (8.6-10.3); EGFR African American 19.7 (>60); EGFR Non-African American 16.3 (>60); Potassium 3.8 mmol/L (3.5-5.0)
[2018-04-21] MEDS: Lactated Ringers 1000 ML Bag* 1,000 ML IV SCH (08:10)
--- NOTE | 2018-04-21 08:23 | PN ---
Progress Note - Progress Note Date of Service: 04/21/18 SOAP: Subjective: []Pt seen at bedside. He feels well with well controlled right hip pain. Denies CP, SOB, dizziness, nausea. Agrees to rehab, has a bed at [facility] tomorrow. Objective: [General: Well appearing, sitting comfortably in a chair RLE: Right hip incision CDI without surrounding erythema and without discharge. thigh is soft. DF/PF intact, DP2+, sensation intact to light touch distally. Calves supple and nontender without erythema, edema or palpable cords Assessment: []POD 2sp revision of right total hip arthroplasty with Dr Gaxioal 04/19 Plan: []TTWB RLE Acute on chronic renal impairment. Requires renal dosing of meds, fluid. Appreciate renal consult, discussed with mitch Mcdaniel for DC from his standpoint. Recommends stop milk of mag, give 30 cc castor oil x 1 to produce BM. Continue PT/OT Heparin bridge to coumadin, INR is within therapeutic range, will continue heparin while in house. Coumadin 2 mg today. H&H improved today, received 3 units pRBC yesterday Vital Signs Temp 97.8 F 04/21/18 08:02 Pulse 84 04/21/18 08:02 Resp 18 04/21/18 08:02 BP 148/78 04/21/18 08:02 Pulse Ox 95 04/21/18 08:02 Intake & Output 04/20/18 04/21/18 04/21/18 18:59 06:59 18:59 Intake Total 1732 1191 501 Output Total 100 1250 Balance 1632 -59 501 Intake: IV Fluids 890 501 D5W 1/2 NS 148 LR 742 501 IVPB 55 ABX - CEFAZOLIN 55 Oral 540 500 Packed Cells 247 691 Output: Urine 0 Ambriz 100 1250 Laboratory Last Values Hgb 8.8 g/dl (14.0-18.0) L 04/21/18 06:02 Hct 25 % (42-52) L 04/21/18 06:02 Plt Count 112 10^3/ul (150-450) L 04/21/18 06:02 MPV 8.1 fL (7.4-10.4) 04/21/18 06:02 INR (Anticoag Therapy) 2.07 (0.77-1.02) H 04/21/18 06:02 Sodium 135 mmol/L (135-145) 04/21/18 06:02 Potassium 3.8 mmol/L (3.5-5.0) 04/21/18 06:02 Chloride 104 mmol/L (101-111) 04/21/18 06:02 Carbon Dioxide 24 mmol/L (22-32) 04/21/18 06:02 Anion Gap 7 mmol/L (2-11) 04/21/18 06:02 BUN 54 mg/dL (6-24) H 04/21/18 06:02 Creatinine 3.69 mg/dL (0.67-1.17) H 04/21/18 06:02 Est GFR ( Amer) 19.7 (>60) 04/21/18 06:02 Est GFR (Non-Af Amer) 16.3 (>60) 04/21/18 06:02 BUN/Creatinine Ratio 14.6 (8-20) 04/21/18 06:02 Glucose 130 mg/dL (70-100) H 04/21/18 06:02 Calcium 7.5 mg/dL (8.6-10.3) L 04/21/18 06:02 Urine Color Yellow 04/20/18 18:45 Urine Appearance Cloudy 04/20/18 18:45 Urine pH 5.0 (5-9) 04/20/18 18:45 Ur Specific Archer 1.014 (1.010-1.030) 04/20/18 18:45 Urine Protein 1+(30 mg/dl) (Negative) A 04/20/18 18:45 Urine Ketones Trace (Negative) A 04/20/18 18:45 Urine Blood 2+ (Negative) A 04/20/18 18:45 Urine Nitrate Negative (Negative) 04/20/18 18:45 Urine Bilirubin Negative (Negative) 04/20/18 18:45 Urine Urobilinogen Negative (Negative) 04/20/18 18:45 Ur Leukocyte Esterase Trace (Negative) A 04/20/18 18:45 Urine WBC (Auto) 2+(11-20/hpf) (Absent) A 04/20/18 18:45 Urine RBC (Auto) 3+(>10/hpf) (Absent) A 04/20/18 18:45 Ur Squamous Epith Cells Present (Absent) A 04/20/18 18:45 Urine Bacteria 1+ (Absent) A 04/20/18 18:45 Urine Yeast Present (Absent) A 04/20/18 18:45 Urine Glucose Negative (Negative) 04/20/18 18:45 Blood Type A Negative 04/20/18 05:51 Antibody Screen Negative 04/20/18 05:51 Crossmatch See Detail 04/20/18 05:51
[2018-04-21] MEDS: Aspirin EC TAB* 81 MG TAB.EC PO SCH (08:33)
[2018-04-21] MEDS: traMADol TAB* 50 MG PO SCH ×2 (08:33→21:02)
[2018-04-21] MEDS: Metoprolol Succinate XL TAB* 50 MG PO SCH (08:33)
[2018-04-21] MEDS: amLODIPine TAB* 5 MG PO SCH (08:33)
[2018-04-21] MEDS: Magnesium Hydroxide LIQ* 30 ML UDC PO SCH (08:35)
[2018-04-21] MEDS: Docusate CAP* 100 MG PO SCH ×2 (08:35→21:01)
[2018-04-21] MEDS: CMCS: Febuxostat(NF) 40 MG TAB PO SCH (08:35)
[2018-04-21] MEDS ORDERED: Castor Oil (Pharmaceutic Aid)* 118 ML BTL PO ONE (11:04)
--- NOTE | 2018-04-21 12:30 | CONS ---
CC: Dr. Andrew, [facility] * NEPHROLOGY CONSULTATION: DATE OF CONSULT: 04/21/18 HISTORY OF PRESENT ILLNESS: Mr. Myles is a 72-year-old gentleman with a history of a bioprosthetic aortic valve replacement secondary to severe aortic stenosis and regurgitation. He had been having some problems with his hips. He was admitted for a revision of a right total hip arthroplasty. Apparently, that surgery was somewhat difficult and more prolonged than was planned, and he had some significant bleeding which required 3 units of transfusion. He is feeling much better at the present time and has no pain whatsoever. He is eating and drinking. He has been ambulating. He has no shortness of breath, no chest pain. PAST MEDICAL HISTORY: His previous medical history includes his previously noted aortic valve replacement. He has a history of benign prostatic hypertrophy; chronic kidney disease, stage 3. He has had history of atrial fibrillation around the time of his aortic valve replacement which has not been recurrent. He has a history of hypertension and he has been told that his chronic renal insufficiency has been due to hypertensive nephropathy. He has a history of idiopathic peripheral neuropathy, history of acne rosacea, and a history of gout. MEDICATIONS: At the time of admission included: 1. Multivitamins. 2. Garlic. 3. Aspirin 81 mg daily. 4. Vitamin D 1000 units daily. 5. Calcium with magnesium, zinc, and vitamin D3 one daily. 6. Tart Huertas Extract. 7. Chlorthalidone 25 mg daily. 8. Amlodipine 10 mg daily. 9. Metoprolol ER 50 mg daily. 10. Atorvastatin 40 mg daily. 11. Clobetasol propionate 0.05% to his rosacea areas. 12. Tramadol 50 mg 1 or 2 every 6 hours. 13. Terazosin 1 mg daily. 14. Uloric 40 mg 1 daily. He has previously been on prednisone preoperatively, but this was discontinued. ALLERGIES: Include BRILINTA, HYDROXYZINE, and ALLOPURINOL. REVIEW OF SYSTEMS: No visual disturbances. No hearing problems. No swallowing difficulties. He is status post 3-vessel coronary artery bypass grafting in July of 2015. He was noted at that time to have some left ventricular hypertrophy and some diastolic congestive heart failure. PHYSICAL EXAM: At the present time, he is afebrile, blood pressure is 148/70 with a pulse of 84, respirations are 18. He is anicteric. The extraocular muscles are intact. Mucous membranes are moist. The chest is clear. The heart revealed regular rhythm. I did not hear any murmurs. The abdomen is soft and nontender. Bones, joints, extremities reveal no cyanosis, clubbing, or edema. Neurologic: He is alert and oriented. He moves all 4 extremities well. DIAGNOSTIC STUDIES/LAB DATA: Review of his laboratory values reveals a white cell count of 13.4, hemoglobin of 8.8, hematocrit of 25, platelet count of 112, 000. Sodium of 135; potassium of 3.8; total CO2 of 24; chloride 104; BUN 54 with a creatinine of 3.69, up from his baseline of 1.8; glucose of 130; calcium of 7.5 with an albumin of 3.9. Urinalysis revealed 1+ protein, trace ketones, 2 + wbc's, 3+ rbc's, there were 1+ bacteria and yeast noted, there were epithelial cells noted in the urine. IMPRESSION: Acute renal insufficiency, likely on the basis of his blood loss. This can certainly be acute tubular necrosis. I have very little to suspect obstructive uropathy, as he has a Ambriz catheter in place and is making adequate urine at the present time. There would be, of course, the possibility of atheroembolic disease considering his valvular heart disease, but we have very little to suggest this at the present time, as his skin looks in good condition as do his nail beds and there is no evidence of petechiae or purpuric lesions. He has not been on semi-synthetic penicillins or nonsteroidal anti- inflammatory drugs. He is likely to recover from this; although with his pre- existing chronic renal insufficiency, he may not get better all the way to his pre-existing level of renal function. We suggest he be given no more milk of magnesia for his lack of having bowel movements, castor oil I think would be a more reasonable thing at present considering his acute kidney injury. I would have no reason to keep him here in the hospital. Apparently, he is being transferred over to [place] into their swing unit for continuing rehab and I suggest that he make arrangements to see Dr. Andrew for close followup after discharge. [id number]/[facility] #: [id number] [facility] MEDICAL CENTERMike
[2018-04-21] MEDS ORDERED: Warfarin TAB(*) 2 MG PO NR (17:00)
--- NOTE | 2018-04-21 17:11 | PN ---
Subjective Date of Service: 04/21/18 Interval History: Pt is feeling ok. He is anxious to go to [facility] bed tomorrow. He finally moved his bowels after taking castor oil this afternoon. He denies SOB at rest but has mild SOB when "working out." Pain is acceptable. Family History: Unchanged from Admission Social History: Unchanged from Admission Past Medical History: Unchanged from Admission Objective Active Medications: Acetaminophen (Tylenol Tab*) 975 mg PO Q8H [facility] Last Admin: 04/21/18 14:30 Dose: 975 mg Amlodipine Besylate ([facility]asc Tab*) [facility] Admin: 04/21/18 08:33 Dose: 10 mg Aspirin (Aspirin Ec Tab*) [facility] Last Admin: 04/21/18 08:33 Dose: 81 mg Atorvastatin Calcium (Lipitor*) 40 mg PO QPM [facility] Last Admin: 04/20/18 17:32 Dose: 40 mg Clobetasol Propionate (Clobetasol 0.05% Oint*) 1 applic TOPICAL DAILY PRN PRN Reason: ITCHY DRY SKIN Cyclobenzaprine HCl (Flexeril Tab*) 10 mg PO TID PRN PRN Reason: SPASMS Diphenhydramine HCl (Benadryl Iv*) 25 mg IV Q6H PRN PRN Reason: itching Diphenhydramine HCl (Benadryl Po*) 25 mg PO Q6H PRN PRN Reason: itching Docusate Sodium (Colace Cap*) 100 mg PO BID [facility] Last Admin: 04/21/18 08:35 Dose: 100 mg Febuxostat (Uloric(Nf)) 40 mg PO [facility] Last Admin: 04/21/18 08:35 Dose: 40 mg Heparin Sodium (Porcine) (Heparin Vial(*)) 5,000 units SUBCUT Q8HR [facility] Last Admin: 04/21/18 14:30 Dose: 5,000 units Lactated Ringer's (Lactated Ringers 1000 Ml Bag*) 1,000 mls @ 150 mls/hr IV PER RATE [facility] Last Admin: 04/21/18 08:10 Dose: 150 mls/hr Lactulose (Lactulose*) 30 ml PO BID PRN PRN Reason: CONSTIPATION Metoprolol Succinate (Toprol Xl Tab*) 50 mg PO [facility] Last Admin: 04/21/18 08:33 Dose: 50 mg Morphine Sulfate (Morphine Vial*) 2 mg IV Q2H PRN PRN Reason: PAIN - BREAKTHROUGH Multivitamins ( Vitamin Tab*) 1 tab PO QPM [facility] Last Admin: 04/20/18 17:34 Dose: 1 tab Ondansetron HCl (Zofran Inj*) 4 mg IV Q6H PRN PRN Reason: nausea Ondansetron HCl (Zofran Odt Tab*) 4 mg PO Q6H PRN PRN Reason: NAUSEA Oxycodone HCl (Roxycodone Tab*) 10 mg PO Q4H PRN PRN Reason: PAIN - SEVERE Last Admin: 04/20/18 12:58 Dose: 10 mg Pharmacy Profile Note (Coumadin Daily Reminder*) 1 note FOLLOW UP 1700 [facility] Last Admin: 04/20/18 17:32 Dose: 1 note Terazosin HCl (Hytrin Cap*) 1 mg PO BEDTIME [facility] Last Admin: 04/20/18 20:45 Dose: 1 mg Tramadol HCl (Ultram*) 50 mg PO Q12H [facility] Last Admin: 04/21/18 08:33 Dose: 50 mg Vital Signs - 8 hr 04/21/18 04/21/18 04/21/18 10:40 11:10 15:41 Temperature 98.4 F 98.7 F Pulse Rate 71 75 Respiratory 18 14 16 Rate Blood Pressure 141/60 122/54 (mmHg) O2 Sat by Pulse 93 96 Oximetry 04/21/18 16:00 Temperature Pulse Rate Respiratory Rate Blood Pressure (mmHg) O2 Sat by Pulse 96 Oximetry Oxygen Devices in Use Now: None Appearance: Elderly male sitting up in bed, NAD Eyes: No Scleral Icterus Ears/Nose/Mouth/Throat: Mucous Membranes Moist Respiratory: Symmetrical Chest Expansion and Respiratory Effort, Clear to Auscultation Cardiovascular: NL Sounds; No Murmurs; No JVD, RRR, No Edema Abdominal: NL Sounds; No Tenderness; No Distention Extremities: No Clubbing, Cyanosis Skin: No Nodules or Sclerosis Neurological: Alert and Oriented x 3 Result Diagrams: 04/21/18 06:02 04/21/18 06:02 Microbiology and Other Data: Microbiology 04/20/18 18:45 Urine Culture - Final Urine No Growth (<1,000 CFU/mL) 04/19/18 11:49 Anaerobic Culture - Preliminary Wound No Growth Day 2 04/19/18 11:49 Gram Stain - Final Hip Right Wound Culture - Preliminary No Growth Day 2 04/19/18 11:40 Anaerobic Culture - Preliminary Wound No Growth Day 2 04/19/18 11:40 Gram Stain - Final Hip Right Wound Culture - Preliminary No Growth Day 2 Assess/Plan/Problems-Billing Mr Myles is a 72yo M with PMHx of CKD stage 3, diastolic CHF, CAD s/p 1 vessel CABG with AVR, HLD, BPH, HTN, peripheral neuropathy, gout, who underwent right hip arthroplasty revision 04/19/[address] Gaxiola and had significant hemorrhage requiring 3units PRBC. - Patient Problems (1) History of revision of total replacement of right hip joint Current Visit: Yes Status: Acute Code(s): Z96.641 - PRESENCE OF RIGHT ARTIFICIAL HIP JOINT SNOMED Code(s): 952392496224946 Comment: Management per ortho. (2) Acute on chronic renal failure Current Visit: Yes Status: Acute Code(s): N17.9 - ACUTE KIDNEY FAILURE, UNSPECIFIED; N18.9 - CHRONIC KIDNEY DISEASE, UNSPECIFIED SNOMED Code(s): 110361367 Comment: The patient's creatinine has not changed much over the last couple days. His acute injury is likely secondary to the hemorrhage and will likely recover hopefully close to his baseline soon. Continue to avoid nephrotoxic medications. Monitor BMP intermittently. (3) Acute blood loss anemia Current Visit: Yes Status: Acute Code(s): D62 - ACUTE POSTHEMORRHAGIC ANEMIA SNOMED Code(s): 680683315 Comment: EBL >1000ml. Hb was 15.7 down to a low of 7.2. He was transfused 3 units PRBC. H/H now improved to 8.8/25. Follow up H/H tomorrow. (4) CAD (coronary artery disease) Current Visit: Yes Status: Acute Code(s): I25.10 - ATHSCL HEART DISEASE OF [place] CORONARY ARTERY W/O ANG PCTRS SNOMED Code(s): 89444134 Comment: Stable and without c/o chest pain. Continue aspirin, atorvastatin and metoprolol. (5) Diastolic CHF Current Visit: Yes Status: Acute Code(s): I50.30 - UNSPECIFIED DIASTOLIC ( CONGESTIVE) HEART FAILURE SNOMED Code(s): 431717111 Comment: No signs of fluid overload. IVF stopped. (6) BPH (benign prostatic hyperplasia) Current Visit: Yes Status: Acute Code(s): N40.0 - BENIGN PROSTATIC HYPERPLASIA WITHOUT LOWER URINRY TRACT SYMP SNOMED Code(s): 328830470 Comment: Continue terazosin. (7) DVT prophylaxis Current Visit: Yes Status: Acute Code(s): HQF3078 - SNOMED Code(s): 467286186 Comment: coumadin (8) Full code status Current Visit: Yes Status: Acute Code(s): Z78.9 - OTHER SPECIFIED HEALTH STATUS SNOMED Code(s): 422147893 Status and Disposition: .
[2018-04-21] MEDS ORDERED: Warfarin TAB(*) 1 MG PO ONE (17:20)
[2018-04-21] MEDS: Prenatal Vitamin TAB PO SCH (17:30)
[2018-04-21] MEDS: Atorvastatin* 40 MG TAB PO SCH (17:30)
--- NOTE | 2018-04-21 20:43 | DS ---
DISCHARGE SUMMARY: DATE OF ADMISSION: 04/19/18 DATE OF DISCHARGE: 04/22/18 DATE OF OPERATION: 04/19/18 SURGEON: Dr. 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 OPERATIVE PROCEDURE: Revision right total hip arthroplasty. HISTORY: Mr. 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 He did undergo a workup consisting of bone scan with which the radiologist thought he has seen some loosening in the femoral stem. The patient elected to undergo a revision of right total hip arthroplasty. HOSPITAL COURSE: The patient was admitted to [facility] on . He underwent a right total hip arthroplasty revision with Dr. Gaxiola without complication. On postop day 1, he was in no acute distress, right hip dressing was clean, dry, and intact. Thigh was soft. Dorsiflexion and plantar flexion intact. DP pulse 2+. Sensation intact to light touch distally. The patient had acute on chronic renal impairment with creatinine of 3.08 and GFR of 20.1. His hemoglobin was 7.9, his hematocrit was 24. His INR was 1.14. He has transfused 1 unit of packed red blood cells initially and later in the afternoon he received 2 more units of packed red blood cells due to a repeat H and H of 7.2/21. Postop day 2, the patient was well appearing in no acute distress. His hemoglobin was now 8.8 and his hematocrit was 25. His INR was 2.07. His creatinine was 3.69. He was seen by Renal, who cleared him to be discharged to [facility] when orthopedically ready. Dressing was changed. Incision was clean, dry, and intact. Thigh was soft. Dorsiflexion, plantar flexion intact distally. DISCHARGE MEDICATIONS: 1. Terazosin 1 mg p.o. at bedtime. 2. Calcium 500 plus vitamin D 1 each q.p.m. 3. Tramadol 1 to 2 tabs p.o. q.6 hours p.r.n.; that is 50 mg tabs. 4. Acetaminophen 325 mg 1 to 2 tabs every 6 hours p.r.n. 5. Clobetasol emollient 0.05% cream, 15 g cream apply topically daily p.r.n. 6. Vitamin D 1000 units p.o. at bedtime. 7. Atorvastatin 40 mg p.o. q.p.m. 8. Amlodipine 10 mg p.o. q.a.m. 9. Metoprolol succinate 50 mg p.o. q.a.m. 10. Chlorthalidone 25 mg p.o. q.a.m. 11. Tart Huertas capsule 1 p.o. q.p.m. 12. Calcium 400 plus D 1 tab p.o. q.a.m. 13. Garlic 1 each p.o. q.a.m. 14. Aspirin 81 mg p.o. q.a.m. 15. Multivitamin 1 tab p.o. q.p.m. 16. Uloric 40 mg p.o. q.a.m. 17. Docusate 100 mg p.o. b.i.d. 18. Oxycodone 5 mg 1 to 2 tabs every 4 hours as needed, max daily dose of 10 5- mg tablets. 19. Warfarin 2 mg tabs, 0 to 5 tabs daily, dose depends on INR. DISCHARGE PLAN: The patient will be discharged to [facility] on 04/22/18. He will be toe-touch weightbearing operative leg. Continue posterior hip precautions. Do not cross legs, do not bend greater than 90 degrees, do not squat. Okay to shower after postop day 3. Nurse to remove roland in 10 to 12 days and do wound check. Nurse to draw INRs daily until renal function and INR has stabilized then may draw on Mondays and . The patient currently recovering from acute on chronic renal impairment, please monitor renal function. He has been given 2 mg tabs, 0 to 5 tabs daily, dosing depends on INR. Pain control: Oxycodone 5 mg tabs, 1 to 2 tabs every 4 hours as needed, max daily dose of 10. Follow up with Dr. Gaxiola in 4 weeks. He is discharged to [facility]. DOUGLAS DEE [id number]/[facility] #: [id number] [facility]
[2018-04-21] MEDS: Terazosin CAP* 1 MG PO SCH (21:02)
[2018-04-22] MEDS: Heparin VIAL(*) 5000 UNITS/ML VIAL (FIVE THOUSAND) SUBCUT SCH (05:37)
[2018-04-22] MEDS: Acetaminophen TAB* 325 MG PO SCH (05:37)
[2018-04-22 05:59] LABS: Hematocrit 26 % (42-52); Mean Platelet Volume 8.1 fL (7.4-10.4); Platelet Count 126 10^3/ul (150-450)
[2018-04-22 06:05] LABS: INR 3.65 (0.77-1.02)
[2018-04-22 06:16] LABS: BUN/Creatinine Ratio 15.6 (8-20); Calcium 8.4 mg/dL (8.6-10.3); EGFR African American 23.2 (>60); EGFR Non-African American 19.2 (>60); Potassium 3.6 mmol/L (3.5-5.0)
--- NOTE | 2018-04-22 09:14 | PN ---
Subjective Date of Service: 04/22/18 Interval History: Pt is feeling ok this AM. He denies any CP or SOB currently. He again states he gets SOB with exertion. He was working on some chair exercises and states that triggered some BMs this AM. Family History: Unchanged from Admission Social History: Unchanged from Admission Past Medical History: Unchanged from Admission Objective Active Medications: Acetaminophen (Tylenol Tab*) 975 mg PO Q8H [facility] Last Admin: 04/22/18 05:37 Dose: 975 mg Amlodipine Besylate (Norvasc Tab*) 10 mg PO [facility] Last Admin: 04/21/18 08:33 Dose: 10 mg Aspirin (Aspirin Ec Tab*) 81 mg PO [facility] Last Admin: 04/21/18 08:33 Dose: 81 mg Atorvastatin Calcium (Lipitor*) 40 mg PO QPM [facility] Last Admin: 04/21/18 17:30 Dose: 40 mg Clobetasol Propionate (Clobetasol 0.05% Oint*) 1 applic TOPICAL DAILY PRN PRN Reason: ITCHY DRY SKIN Cyclobenzaprine HCl (Flexeril Tab*) 10 mg PO TID PRN PRN Reason: SPASMS Diphenhydramine HCl (Benadryl Iv*) 25 mg IV Q6H PRN PRN Reason: itching Diphenhydramine HCl (Benadryl Po*) 25 mg PO Q6H PRN PRN Reason: itching Docusate Sodium (Colace Cap*) 100 mg PO BID [facility] Last Admin: 04/21/18 21:01 Dose: Not Given Febuxostat (Uloric(Nf)) 40 mg PO [facility] Last Admin: 04/21/18 08:35 Dose: 40 mg Lactulose (Lactulose*) 30 ml PO BID PRN PRN Reason: CONSTIPATION Metoprolol Succinate (Toprol Xl Tab*) 50 mg PO [facility] Last Admin: 04/21/18 08:33 Dose: 50 mg Morphine Sulfate (Morphine Vial*) 2 mg IV Q2H PRN PRN Reason: PAIN - BREAKTHROUGH Multivitamins ( Vitamin Tab*) 1 tab PO QPM [facility] Last Admin: 04/21/18 17:30 Dose: 1 tab Ondansetron HCl (Zofran Inj*) 4 mg IV Q6H PRN PRN Reason: nausea Ondansetron HCl (Zofran Odt Tab*) 4 mg PO Q6H PRN PRN Reason: NAUSEA Oxycodone HCl (Roxycodone Tab*) 10 mg PO Q4H PRN PRN Reason: PAIN - SEVERE Last Admin: 04/20/18 12:58 Dose: 10 mg Pharmacy Profile Note (Coumadin Daily Reminder*) 1 note FOLLOW UP 1700 [facility] Last Admin: 04/21/18 17:30 Dose: 1 note Terazosin HCl (Hytrin Cap*) 1 mg PO BEDTIME [facility] Last Admin: 04/21/18 21:02 Dose: 1 mg Tramadol HCl (Ultram*) 50 mg PO Q12H [facility] Last Admin: 04/21/18 21:02 Dose: 50 mg Vital Signs - 8 hr 04/22/18 04/22/18 03:23 07:51 Temperature 98.1 F 98.4 F Pulse Rate 40 106 Respiratory 17 16 Rate Blood Pressure 133/64 143/76 (mmHg) O2 Sat by Pulse 97 98 Oximetry Oxygen Devices in Use Now: None Appearance: Elderly male sitting up in a chair, NAD Eyes: No Scleral Icterus Ears/Nose/Mouth/Throat: Mucous Membranes Moist Respiratory: Symmetrical Chest Expansion and Respiratory Effort, Clear to Auscultation Cardiovascular: NL Sounds; No Murmurs; No JVD, No Edema, - - irregular sounding (EKG however NSR with 1st degree AV block, unconducted PAC and pair of PVCs). Abdominal: NL Sounds; No Tenderness; No Distention Extremities: No Clubbing, Cyanosis Skin: No Nodules or Sclerosis Neurological: Alert and Oriented x 3 Result Diagrams: 04/22/18 05:31 04/22/18 05:31 Microbiology and Other Data: Microbiology 04/20/18 18:45 Urine Culture - Final Urine No Growth (<1,000 CFU/mL) 04/19/18 11:49 Anaerobic Culture - Preliminary Wound No Growth Day 2 04/19/18 11:49 Gram Stain - Final Hip Right Wound Culture - Preliminary No Growth Day 2 04/19/18 11:40 Anaerobic Culture - Preliminary Wound No Growth Day 2 04/19/18 11:40 Gram Stain - Final Hip Right Wound Culture - Preliminary No Growth Day 2 Assess/Plan/Problems-Billing Mr Myles is a 72yo M with PMHx of CKD stage 3, diastolic CHF, CAD s/p 1 vessel CABG with AVR, HLD, BPH, HTN, peripheral neuropathy, gout, who underwent right hip arthroplasty revision 04/19/[address] Gaxiola and had significant hemorrhage requiring 3units PRBC. - Patient Problems (1) History of revision of total replacement of right hip joint Current Visit: Yes Status: Acute Code(s): Z96.641 - PRESENCE OF RIGHT ARTIFICIAL HIP JOINT SNOMED Code(s): 120118796771080 Comment: Management per ortho. INR supratherapeutic at 3.65 today. Hold coumadin tonight. Will need close following of INR to achieve therapeutic range. (2) Acute on chronic renal failure Current Visit: Yes Status: Acute Code(s): N17.9 - ACUTE KIDNEY FAILURE, UNSPECIFIED; N18.9 - CHRONIC KIDNEY DISEASE, UNSPECIFIED SNOMED Code(s): 996575113 Comment: Creatinine is down slightly today to 3.2. Baseline creatinine around 1.8-2.0. Continue to avoid nephrotoxic agents, follow creatinine intermittently. (3) Acute blood loss anemia Current Visit: Yes Status: Acute Code(s): D62 - ACUTE POSTHEMORRHAGIC ANEMIA SNOMED Code(s): 168813356 Comment: EBL >1000ml. Hb was 15.7 down to a low of 7.2. He was transfused 3 units PRBC. H/H continues to improve. Monitor intermittently. (4) CAD (coronary artery disease) Current Visit: Yes Status: Acute Code(s): I25.10 - ATHSCL HEART DISEASE OF [place] CORONARY ARTERY W/O ANG PCTRS SNOMED Code(s): 50428397 Comment: Stable and without c/o chest pain. Continue aspirin, atorvastatin and metoprolol. (5) Diastolic CHF Current Visit: Yes Status: Acute Code(s): I50.30 - UNSPECIFIED DIASTOLIC ( CONGESTIVE) HEART FAILURE SNOMED Code(s): 098087751 Comment: No signs of fluid overload. (6) BPH (benign prostatic hyperplasia) Current Visit: Yes Status: Acute Code(s): N40.0 - BENIGN PROSTATIC HYPERPLASIA WITHOUT LOWER URINRY TRACT SYMP SNOMED Code(s): 198549185 Comment: Continue terazosin. (7) DVT prophylaxis Current Visit: Yes Status: Acute Code(s): BXF8274 - SNOMED Code(s): 950818677 Comment: coumadin (8) Full code status Current Visit: Yes Status: Acute Code(s): Z78.9 - OTHER SPECIFIED HEALTH STATUS SNOMED Code(s): 547713833 Status and Disposition: Pt ok to d/c from medical standpoint.
[2018-04-22] MEDS: Docusate CAP* 100 MG PO SCH (09:19)
[2018-04-22] MEDS: Metoprolol Succinate XL TAB* 50 MG PO SCH (09:23)
[2018-04-22] MEDS: Aspirin EC TAB* 81 MG TAB.EC PO SCH (09:23)
[2018-04-22] MEDS: amLODIPine TAB* 5 MG PO SCH (09:23)
[2018-04-22] MEDS: traMADol TAB* 50 MG PO SCH (09:23)
[2018-04-22] MEDS: CMCS: Febuxostat(NF) 40 MG TAB PO SCH (09:24)
--- NOTE | 2018-04-22 11:14 | PN ---
Progress Note - Progress Note Date of Service: 04/22/18 SOAP: Subjective: []Pt seen at bedside. He feels well without CP, SOB, dizziness, nausea. He had an irregular EKG this morning that was reviewed by cardiology and by medicine without concern, and confirmed he can be safely discharged without medication changes or further monitoring. Objective: [] General: Well appearing, sitting comfortably in a chair RLE: Right hip dressing changed, incision CDI without surrounding erythema and without discharge. thigh is soft. DF/PF intact, DP2+, sensation intact to light touch distally. Calves supple and nontender without erythema, edema or palpable cords Assessment: []POD 3 sp revision of right total hip arthroplasty with Dr Gaxiola 04/19 Plan: []TTWB RLE Acute on chronic renal impairment. Requires renal dosing of meds, fluid. Appreciate renal consult Continue PT/OT Hold coumadin today, recheck INR for further dosing instruction tomorrow H&H stable Vital Signs Temp 98.4 F 04/22/18 07:51 Pulse 106 04/22/18 07:51 Resp 18 04/22/18 09:23 BP 143/76 04/22/18 07:51 Pulse Ox 98 04/22/18 07:51 Intake & Output 04/21/18 04/22/18 04/22/18 18:59 06:59 18:59 Intake Total 2344 720 Output Total 1750 1250 450 Balance 594 -530 -450 Intake: IV Fluids 1014 LR 1014 Oral 1330 720 Output: Urine 1250 450 Ambriz 1750 Other: Estimated Void Medium Date of Last Bowel 04/22/18 Movement # Bowel Movements 1 1 1 Estimated Stool Amount Medium Medium Medium # Voids 1 Laboratory Last Values Hgb 9.0 g/dl (14.0-18.0) L 04/22/18 05:31 Hct 26 % (42-52) L 04/22/18 05:31 Plt Count 126 10^3/ul (150-450) L 04/22/18 05:31 MPV 8.1 fL (7.4-10.4) 04/22/18 05:31 INR (Anticoag Therapy) 3.65 (0.77-1.02) H 04/22/18 05:31 Sodium 139 mmol/L (135-145) 04/22/18 05:31 Potassium 3.6 mmol/L (3.5-5.0) 04/22/18 05:31 Chloride 108 mmol/L (101-111) 04/22/18 05:31 Carbon Dioxide 25 mmol/L (22-32) 04/22/18 05:31 Anion Gap 6 mmol/L (2-11) 04/22/18 05:31 BUN 50 mg/dL (6-24) H 04/22/18 05:31 Creatinine 3.20 mg/dL (0.67-1.17) H 04/22/18 05:31 Est GFR ( Amer) 23.2 (>60) 04/22/18 05:31 Est GFR (Non-Af Amer) 19.2 (>60) 04/22/18 05:31 BUN/Creatinine Ratio 15.6 (8-20) 04/22/18 05:31 Glucose 114 mg/dL (70-100) H 04/22/18 05:31 Calcium 8.4 mg/dL (8.6-10.3) L 04/22/18 05:31 Urine Color Yellow 04/20/18 18:45 Urine Appearance Cloudy 04/20/18 18:45 Urine pH 5.0 (5-9) 04/20/18 18:45 Ur Specific [place] 1.014 (1.010-1.030) 04/20/18 18:45 Urine Protein 1+(30 mg/dl) (Negative) A 04/20/18 18:45 Urine Ketones Trace (Negative) A 04/20/18 18:45 Urine Blood 2+ (Negative) A 04/20/18 18:45 Urine Nitrate Negative (Negative) 04/20/18 18:45 Urine Bilirubin Negative (Negative) 04/20/18 18:45 Urine Urobilinogen Negative (Negative) 04/20/18 18:45 Ur Leukocyte Esterase Trace (Negative) A 04/20/18 18:45 Urine WBC (Auto) 2+(11-20/hpf) (Absent) A 04/20/18 18:45 Urine RBC (Auto) 3+(>10/hpf) (Absent) A 04/20/18 18:45 Ur Squamous Epith Cells Present (Absent) A 04/20/18 18:45 Urine Bacteria 1+ (Absent) A 04/20/18 18:45 Urine Yeast Present (Absent) A 04/20/18 18:45 Urine Glucose Negative (Negative) 04/20/18 18:45 Blood Type A Negative 04/20/18 05:51 Antibody Screen Negative 04/20/18 05:51 Crossmatch See Detail 04/20/18 05:51
[2018-04-22 12:15] VITALS: BP 128/68
== END 2018-04-22 12:50 | DRG 467 ==
LOC: AA 08:32 → SSU 17:14
PROVIDERS: ADMIT Orthopaedic Surgery; ATTEND Orthopaedic Surgery
PROC: 0SP90JZ Removal of Synthetic Substitute from Right Hip Joint, Open Approach (ICD-10-PCS; 2018-04-19)
PROC: 0SR904A Replacement of Right Hip Joint with Ceramic on Polyethylene Synthetic Substitute, Uncemented, Open Approach (ICD-10-PCS; principal; 2018-04-19 10:30)
PROC: 30233N1 Transfusion of Nonautologous Red Blood Cells into Peripheral Vein, Percutaneous Approach (ICD-10-PCS; 2018-04-20)
DX: T84.091A Other mechanical complication of internal left hip prosthesis, initial encounter (principal); D62 Acute posthemorrhagic anemia; N17.9 Acute kidney failure, unspecified; T84.84XA Pain due to internal orthopedic prosthetic devices, implants and grafts, initial encounter; I48.91 Unspecified atrial fibrillation; I25.10 Atherosclerotic heart disease of native coronary artery without angina pectoris; I13.10 Hypertensive heart and chronic kidney disease without heart failure, with stage 1 through stage 4 chronic kidney disease, or unspecified chronic kidney disease; N18.3 Chronic kidney disease, stage 3 (moderate); E78.5 Hyperlipidemia, unspecified; L71.9 Rosacea, unspecified; N40.0 Benign prostatic hyperplasia without lower urinary tract symptoms; M10.9 Gout, unspecified; G60.9 Hereditary and idiopathic neuropathy, unspecified; R79.1 Abnormal coagulation profile; N99.0 Postprocedural (acute) (chronic) kidney failure; X58.XXXA Exposure to other specified factors, initial encounter; Z96.643 Presence of artificial hip joint, bilateral; Z95.2 Presence of prosthetic heart valve; Z95.5 Presence of coronary angioplasty implant and graft; Z95.1 Presence of aortocoronary bypass graft; Z79.1 Long term (current) use of non-steroidal anti-inflammatories (NSAID); Z79.82 Long term (current) use of aspirin; Z79.899 Other long term (current) drug therapy; Z88.8 Allergy status to other drugs, medicaments and biological substances; Z82.49 Family history of ischemic heart disease and other diseases of the circulatory system; Z82.3 Family history of stroke; Z83.3 Family history of diabetes mellitus
CPT/HCPCS: 36415; 72170; 80048; 81003; 81015; 85014; 85018; 85049; 85610; 86850; 86900; 86901; 86922; 87070; 87073; 87086; 87205; 88300; 88304; 88313; 93005; A9270-GY; G8978-GP-CL; G8979-GP-CI; G8987-GO-CK; G8988-GO-CI; J0690; J1100; J1170; J1644; J1940; J2001; J2250; J2405; J2704; J3010; J3370; P9040

== ENCOUNTER 2018-05-07 17:06 | Inpatient (IN) | payer MEDICARE ==
--- OUTSIDE RECORDS SUMMARY | 2018-05-08 14:32 | XMS REPORT | Continuity of Care Document ---
:1945 External Reference #:[id number] Author Name Linda Reyes Care Team Providers Name Role Phone Italia Kruse MD Primary Care Physician Unavailable Payers Date Identification Numbers Payment Provider Subscriber Policy Number: [id number] Medicare Blue Ppo Dameon Myles PayID: [id number] [address] [address] G[place] Vicente [address] Advance Directives Description No Information Available Problems Date Description Provider Status Onset: 03/26/2018 Prosthetic arthroplasty of the hip Alexy Gaxiola M.D. Active Onset: 03/26/2018 Pain due to internal orthopedic Alexy Gaxiola M.D. Active prosthetic devices, implants and grafts, initial encounter Family History Date Family Member(s) Observation Comments General Diabetes General Heart Disease General Hypertension General Stroke Social History Type Date Description Comments Sex Unknown Lives With Spouse Occupation Retired ETOH Use Rarely consumes alcohol Tobacco Use Start: Unknown Patient has never smoked Recreational Drug Use Denies Drug Use Smoking Status Reviewed: 04/14/18 Patient has never smoked Exercise Type/Frequency Does not exercise Allergies, Adverse Reactions, Alerts Date Description Reaction Status Severity Comments 02/18/2018 Brilinta Active panic attack 02/18/2018 Allopurinol Active itching Medications Medication Date Status Form Strength Qnty SIG Indications Ordering Provider Ultram 03/04 Active Tablets 50mg 90tab 2 tab every M25.551 s 6 hours as Minor, needed for M.D. pain, take with 2 regular strength tylenol Metoprolol Active Tablets 50mg 1 by mouth Unknown Succinate ER /0000 ER 24HR every day Atorvastatin 00 Active Tablets 40mg 1 by mouth Unknown Calcium /0000 every day Terazosin HCL Active Capsules 1mg take 1 Unknown capsule by mouth everyday at bedtime Chlorthalidone Active Tablets 25mg 1 by mouth Unknown /0000 every day Uloric 00/00 Active Tablets 40mg 1 by mouth every day Amlodipine Active Tablets 10mg 1 by mouth Unknown Bes every day Aspirin Active Tablets 81mg [address] every day Vitamin D Active Tablets 1000Unit by mouth Unknown everyday Garlic Active Capsules 1000mg 2 by mouth every day Calcium Carbonate Active Magnesium Active Methylprednisolone 02/18 Hx TBPK 4mg 21uni medrol M25.551 ts dosepak F - take as Bernard, 03/03 instructed Immunizations Description No Information Available Vital Signs Date Vital Result Comment 04/14/2018 10:38am Height 70 inches 5'10" Weight 254.00 lb Heart Rate 66 /min BP Systolic 134 mmHg BP Diastolic 70 mmHg Body Temperature 97.7 F Pain Level 3 w/ pain reliever BMI (Body Mass Index) 36.4 kg/m2 03/26/2018 9:08am Height 70 inches 5'10" Weight [...] BMI (Body Mass Index) 35.1 kg/m2 Results Test Date Facility Test Result H/L Range Note Inr/Protime 04/14/2018 [facility] Inr 0.96 N 0.77-1.[address] [place] [address] [phone] Laboratory test 04/14/2018 [facility] Partial 27.9 seconds N 26.0-36.[address] [place] [place] [address] PTT [phone] Type & Screen 04/14/2018 [facility] Patient Blood A Negative [address] [place] [address] [phone] Antibody Screen NEGATIVE Procedures Date Code Description Status 04/19/2018 35662 Revise Total Hip Arthroplasty Both Components Completed 11/16/2012 61033 ECHO Transthorasic Realtime 2D W Doppler & Color Flow Hosp Completed Encounters Type Date Location Provider Dx Diagnosis Office Visit 03/26/2018 Orthopedic Alexy Gaxiola, T84.84xA Pain due to 9:15a [facility] M.D. internal [place] orthopedic prosth dev/grft, init Z96.641 Presence of right artificial hip joint Office Visit 03/04/2018 11:30a Orthopedic Alexy Gaxiola M25.551 Pain in [facility] .DCourtney right hip Lee Z96.641 Presence of right artificial hip joint T84.84xA Pain due to internal orthopedic prosth dev/grft, init Office Visit 02/18/2018 9:15a Orthopedic Ronal Sharma M25.551 Pain in [facility] Wagner MD right hip Z96.641 Presence of right artificial hip joint M61.9 Calcification and ossification of muscle, unspecified Plan of Treatment Future Appointment(s):04/29/2018 10:45 am - Alexy Gaxiola M.D. at [facility] AT Ytrjdptb49/21/2019 11:15 am - Alexy Gaxiola M.D. at [facility] AT Ikxdrnfz62/20/2019 - Ivis Davila RPA-CT84.84xA Pain due to internal orthopedic prosthetic devices, implantsFollow up:Follow up : 3-4 [address] op [address] GaxiolaZ96.641 Presence of right artificial hip joint
[2018-05-08] MEDS ORDERED: Magnesium Hydroxide LIQ* 30 ML UDC PO PRN (15:02)
[2018-05-08] MEDS ORDERED: Bisacodyl EC TAB* 5 MG PO PRN (15:02)
[2018-05-08] MEDS: Atorvastatin* 40 MG TAB PO SCH (16:21)
[2018-05-08 16:58] LABS: ABS Basophils 0.1 10^3/ul (0-0.2); ABS Eosinophils 0.2 10^3/ul (0-0.6); ABS Monocytes 0.6 10^3/ul (0-0.8); ABS Neutrophils 4.6 10^3/ul (1.5-7.7); ABS Nucleated RBC 0 10^3/ul; Eosinophil % 2.9 %; Hematocrit 27 % (36-46); Hemoglobin 9.1 g/dL (14.0-18.0); Lymphocyte % 15.9 %; Mean Corpuscular HGB Conc 34 g/dL (31-36); Mean Corpuscular Hemoglobin 31 pg (27-31); Mean Corpuscular Volume 92 fL (80-94); Mean Platelet Volume 7.1 fL (7.4-10.4); Nucleated Red Blood Cells % 0; Platelet Count 442 10^3/uL (150-450); Red Blood Count 2.93 10^6 /uL (4.18-5.48); Red Cell Distribution Width 14 % (10.5-15); White Blood Count 6.5 10^3/uL (3.5-10.8)
[2018-05-08 17:04] LABS: INR 1.29 (0.77-1.02)
[2018-05-08 17:15] LABS: Albumin 3.1 g/dL (3.2-5.2); Albumin/Globulin Ratio 1.1 (1-3); BUN/Creatinine Ratio 16.7 (8-20); Calcium 9.2 mg/dL (8.6-10.3); EGFR African American 35.4 (>60); EGFR Non-African American 29.3 (>60); Globulin 2.7 g/dL (2-4); Potassium 4.4 mmol/L (3.5-5.0); Total Bilirubin 0.3 mg/dL (0.2-1.0); Total Protein 5.8 g/dL (6.4-8.9)
--- NOTE | 2018-05-08 17:44 | HP ---
CC: Dr. Italia Kruse; [facility]; Dr. Alexy Gaxiola HISTORY AND PHYSICAL: DATE OF ADMISSION: 05/08/18 TIME OF EVALUATION: 2:45. PRIMARY CARE PROVIDER: Dr. Italia Kruse. CONSULTING ORTHOPEDIST: Dr. Alexy Gaxiola. CHIEF COMPLAINT: "I'm going to need surgery again." HISTORY OF PRESENT ILLNESS: Mr. Myles is a 72-year-old male with a past medical history of CKD stage 3; hypertension; CAD, status post CABG x1, aortic valve replacement; hyperlipidemia; BPH; gout; isaiah pheral neuropathy, who was initially admitted electively to [facility] on 04/19/18. He was having issues wi th right hip pain and he was admitted for an elective right total hip revision with Dr. Gaxiola. He went to the OR and he had a prolonged surgery with an estimated blood loss of 1250 mL. After surgery , he was seen in consultation by the hospitalist service and the patient did develop acute on chronic renal failure due to his significant blood loss. He received blood transfusion and his renal functi on improved. He was seen in consultation by Nephrology (Dr. Liao) and he agreed that the patient johnson madrigalld have some degree of acute tubular necrosis. He did have improvement of his renal function, made progress after surgery, and on 04/22/18 he was discharged to [facility] for rehab. Unfortunately, there is no transfer summary at this time and I tried to reach Dr. Meyer at , but had no success, so most of the information about his stay at [place] is obtained from the kan devlin and nurse's notes. So, as per the patient, initially he was doing okay with physical therapy, progressing slowly and the aides were measuring his legs and noted that the right one was [address]. The patient states that he had a hip x-ray done on 04/29/18 and was told "everything was okay" a nd on 05/06/18, he had another x-ray done and was noted to have the hip dislocation. He states that he had no falls, no change in the pain, and he was not even aware that the hip was dislocated. As per my conversation with Dr. Gaxiola yesterday, he had tried a closed reduction the day before, bu t it was not successful, so his plan was to have the patient transferred here to perform open reducti on on 05/10/18. The patient is anticoagulated with warfarin and he received 1 dose of vitamin K whil e at [facility], but the plan is to have his INR less than 1.7 prior to his surgery on Thursday. The patient also states that a couple days prior to having his x-ray showing the hip dislocation, his gout flared up and he started to have left ankle pain and swelling. He was receiving colchicine at [place] and he states that the pain is better now, but it is still bothersome. PAST MEDICAL HISTORY: 1. CKD stage 3. 2. LVH. 3. Rosacea. 4. CAD, status post CABG x1. 5. Status post aortic valve replacement (bioprosthetic). 6. BPH. 7. Hyperlipidemia. 8. Neuropathy. 9. Hypertension. 10. Gout. PAST SURGICAL HISTORY: 1. Status post bilateral hip replacements with right hip revision on 04/19/18 as described above. 2. Right wrist ganglion cyst removal. 3. Angioplasty with 1 stent in 2015 and CABG with aortic valve replacement in the same year. MEDICATIONS: At the time of transfer from [facility]: 1. Tylenol 650 mg p.o. q.6 hours p.r.n. pain or fever. 2. Amlodipine 10 mg p.o. daily. 3. Aspirin 81 mg p.o. daily. 4. Atorvastatin 40 mg p.o. at bedtime. 5. Dulcolax 10 mg p.o. daily p.r.n. constipation. 6. Calcium plus vitamin D 1 tablet p.o. daily. 7. Famotidine IV 20 mg IV daily. 8. Uloric 40 mg p.o. daily. 9. Heparin 5000 units subcutaneously q.12 hours. 10. Milk of magnesia 30 mL p.o. daily as needed for constipation. 11. Metoclopramide IV 10 mg IV q.8 hours p.r.n. nausea. 12. Metoprolol succinate 50 mg p.o. daily. 13. Oxycodone 5 mg p.o. q.4 hours p.r.n. pain. 14. Potassium chloride 20 mEq p.o. t.i.d. 15. Terazosin 1 mg p.o. at bedtime. 16. Tramadol 50 mg p.o. q.6 hours p.r.n. pain. 17. Warfarin 6 mg p.o. daily. ALLERGIES: ALLOPURINOL, HYDROXYZINE, and TICAGRELOR. FAMILY HISTORY: Brother has peripheral neuropathy. Mother is . Father is , had a h istory of congestive heart failure. SOCIAL HISTORY: The patient is and has 4 kids. There is no history of alcohol or drug use. REVIEW OF SYSTEMS: A 14-point review of systems was performed and all the pertinent negative and pos itive findings are in the HPI. PHYSICAL EXAMINATION GENERAL: The patient is a pleasant, obese, elderly male, lying in bed, in no acute distress. VITAL SIGNS: Temperature 98.0, heart rate 73, respiratory rate is 20, oxygen saturation 96% on room air, blood pressure is 140/63. HEENT: Pupils are equal. Moist mucous membranes. CHEST: Breath sounds present bilaterally with no added sounds. CVS: Normal S1, S2. Regular rate and rhythm. ABDOMEN: Soft. Bowel sounds are present. EXTREMITIES: There is mild edema and warmth of the left ankle with no erythema. Right hip incision, roland are already removed. It is clean and dry with Steri- Strips in place. No erythema or draina ge. The patient's sensation is intact. He is able to move all 4 extremities, wiggle toes. There is no calf tenderness, but he does have some bilateral lower extremity pitting edema. NEURO: He is alert and oriented x3. Able to move all 4 extremities. LABORATORY AND IMAGING DATA: Last lab results from [facility] are from 05/05/18 and include a CBC with a WBC of 7, a hemoglobin of 8.7, hematocrit of 28, platelets of 451. INR was 2.99. Sodiu m 144, potassium 4, chloride of 107, bicarb of 27, BUN of 39, creatinine of 2.4, glucose of 91, calci um is 8.9. ASSESSMENT AND PLAN: Mr. Myles is a 72-year-old male with a past medical history of chronic kidney d isease; hypertension; left ventricular hypertrophy; coronary artery disease, status post 1-vessel cor onary artery bypass graft, aortic valve replacement; hyperlipidemia; benign prostatic hypertrophy; go ut; neuropathy, who had a right hip revision on 04/19/18 and now returns with right hip dislocation. 1. Right hip dislocation. The patient will be admitted to the medical service and he will be seen i n consultation by Dr. Gaxiola. The plan is for a possible open reduction on 05/10/18. The goal is t o have an INR less than 1.7, so we are going to repeat labs today and give more vitamin K as needed. We will continue pain management. Medical clearance is pending depending on the results of his test s. 2. Chronic kidney disease stage 3. His creatinine has trended down to 2. We will continue to monit or and avoid nephrotoxic medications. 3. Hypertension is controlled. We will continue metoprolol and amlodipine. 4. Coronary artery disease, stable. We will continue aspirin, metoprolol, and atorvastatin. 5. Gout. The patient is having a flare. We are going to continue Uloric, colchicine, and pain medi cations. 6. DVT prophylaxis: The patient has a score of 8 on the DVT Risk Assessment Guide and at this point his warfarin is held and the goal is to have an INR less than 1.7. In the meantime, he will have cavazos bcutaneous heparin for DVT prophylaxis. 7. Code status is full. TIME SPENT: Approximately 55 minutes were spent with the patient interview, medical records review, physical examination to complete admission; more than half of this time was spent [id number] with t diya patient and coordination of care. [id number]/[facility] #: [id number]
[2018-05-08] MEDS: Terazosin CAP* 1 MG PO SCH (20:58)
[2018-05-08] MEDS: Potassium Chlor TAB* 20 MEQ TAB.ER PO SCH (20:58)
[2018-05-08] MEDS: Heparin VIAL(*) 5000 UNITS/ML VIAL (FIVE THOUSAND) SUBCUT SCH (22:02)
[2018-05-09] MEDS: Heparin VIAL(*) 5000 UNITS/ML VIAL (FIVE THOUSAND) SUBCUT SCH ×3 (05:46→22:25)
--- NOTE | 2018-05-09 08:18 | PN ---
Subjective Date of Service: 05/09/18 Interval History: HD #2 on 05/09 72M PMH HTN, CAD s/p CABGx1, s/p AVR, HLD, gout, chronic neuropathy, CKD Stage 3 who is s/p R THR on 04/19 c/b blood loss intraopertively and subsequent ATN, readmitted from rehab w/ R hip dislocation and gout flare. Pending open reduction on 05/10. Overnight no acute events. VSS, mild HTN s150s max, +UOP, + BM Labs 05/08 reviewed, INR 1.2, holding warfarin, s/p Vit K x 1 RN noted irregular rhythym on exam, EKG ordered sinus with some ectopy, will place on tele to monitor for the day only This morning, seen in bed, doing well, at bedside. Complaint of L ankle pain attributed to gout, feels painful to bear weight on L, dull/throbbing, and obviously non weightbearing on R at this time. Otherwise no complaints, tolerating diet, no CP, SOB, GI other MSK or Gu complaints. Objective Active Medications: Acetaminophen (Tylenol Tab*) 650 mg PO Q6H PRN PRN Reason: PAIN Amlodipine Besylate (Norvasc Tab*) 10 mg PO QAM [facility] Aspirin (Aspirin Ec Tab*) 81 mg PO QAM [facility] Atorvastatin Calcium (Lipitor*) 40 mg PO QPM [facility] Last Admin: 05/08/18 16:21 Dose: Not Given Bisacodyl (Dulcolax Ec Tab*) 10 mg PO DAILY PRN PRN Reason: CONSTIPATION Calcium/Vitamin D (Oscal D Tab 250/125*) 1 tab PO QAM [facility] Colchicine (Colcrys*) 0.6 mg PO DAILY [facility] Famotidine (Pepcid Iv*) 20 mg IV DAILY [facility] Febuxostat (Uloric(Nf)) 40 mg PO QAM [facility] Heparin Sodium (Porcine) (Heparin Vial(*)) 5,000 units SUBCUT Q8HR [facility] Last Admin: 05/09/18 05:46 Dose: 5,000 units Magnesium Hydroxide (Milk Of Magnesia Liq*) 30 ml PO DAILY PRN PRN Reason: CONSTIPATION Metoprolol Succinate (Toprol Xl Tab*) 50 mg PO QAM [facility] Oxycodone HCl (Roxycodone Tab*) 5 mg PO Q4H PRN PRN Reason: PAIN - SEVERE Potassium Chloride (Klor Con Er Tab*) 20 meq PO TID [facility] Last Admin: 05/08/18 20:58 Dose: 20 meq Terazosin HCl (Hytrin Cap*) 1 mg PO BEDTIME [facility] Last Admin: 05/08/18 20:58 Dose: 1 mg Tramadol HCl (Ultram*) 50 mg PO Q6HR PRN PRN Reason: PAIN Vital Signs - 8 hr 05/09/18 05/09/18 03:37 07:42 Temperature 98.1 F 98.0 F Pulse Rate 89 88 Respiratory 18 18 Rate Blood Pressure 140/76 144/86 (mmHg) O2 Sat by Pulse 93 93 Oximetry Oxygen Devices in Use Now: None Appearance: Well man in NAD Ears/Nose/Mouth/Throat: NL Teeth, Lips, Gums, Mucous Membranes Moist Respiratory: Symmetrical Chest Expansion and Respiratory Effort, Clear to Auscultation Cardiovascular: NL Sounds; No Murmurs; No JVD, RRR Abdominal: NL Sounds; No Tenderness; No Distention Lymphatic: No Cervical Adenopathy Extremities: No Edema, - - Mildly tender on active ROM L ankle, mild swelling without erythema or warmth, 2+pulses, L leg 1 inch shorter, external rotated Skin: No Rash or Ulcers Neurological: Alert and Oriented x 3 Result Diagrams: 05/08/18 16:47 05/08/18 16:47 Microbiology and Other Data: Microbiology 05/08/18 14:55 Nasal Screen MRSA (PCR) - Final Nasal Mrsa Not Detected Assess/Plan/Problems-Billing Assessment: 72M PMH HTN, CAD s/p CABGx1, s/p AVR with resultant HFpEF (last EF 60% 2019) HLD, gout, chronic neuropathy, CKD Stage 3 who is s/p R THR on 04/19 c/b blood loss intraopertively and subsequent ATN, readmitted from rehab w/ R hip dislocation and gout flare. Pending open reduction on 05/10. - Patient Problems (1) Hip dislocation, right Current Visit: Yes Status: Acute Code(s): S73.004A - UNSPECIFIED DISLOCATION OF RIGHT HIP, INITIAL ENCOUNTER SNOMED Code(s): 220439490 Comment: - In setting of R THR 04/19. Attempted closed reduction failed - Possible open reduction 05/10 - Percautions per ortho, non weight bearing (2) CKD (chronic kidney disease) stage 3, GFR 30-59 ml/min Current Visit: Yes Status: Acute Code(s): N18.3 - CHRONIC KIDNEY DISEASE, STAGE 3 (MODERATE) SNOMED Code(s): 830128902 Comment: - With recent ATN Mar 2018 in setting of acute blood loss anemia - CTM, good UOP - Renally dose medications (3) CAD (coronary artery disease) Current Visit: No Status: Acute Code(s): I25.10 - ATHSCL HEART DISEASE OF [place] CORONARY ARTERY W/O ANG PCTRS SNOMED Code(s): 11066502 Comment: - Stable and without c/o chest pain. Tele for the day with RN concern for ectopy, will d/c if no abnormalities noted - Continue aspirin, atorvastatin and metoprolol. Not on ACEI. (4) Diastolic CHF Current Visit: No Status: Acute Code(s): I50.30 - UNSPECIFIED DIASTOLIC ( CONGESTIVE) HEART FAILURE SNOMED Code(s): 581459429 Comment: - No signs of fluid overload. - EF 60% recently with normal AV s/p AVR - On BB, Statin, Asa, not on fluid mgmt at this time. - Rhytym: Sinus (5) Hypertension Current Visit: Yes Status: Acute Code(s): I10 - ESSENTIAL (PRIMARY) HYPERTENSION SNOMED Code(s): 95011305 Comment: - Fair control, continue to monitor - Continue home Amlodipine, Metoprolol (6) BPH (benign prostatic hyperplasia) Current Visit: No Status: Acute Code(s): N40.0 - BENIGN PROSTATIC HYPERPLASIA WITHOUT LOWER URINRY TRACT SYMP SNOMED Code(s): 428390623 Comment: - Continue terazosin. (7) Gout Current Visit: Yes Status: Acute Code(s): M10.9 - GOUT, UNSPECIFIED SNOMED Code(s): 98049251 Comment: - Recent flare, with good control on below - On colchicine, Febuxostat, start pred burst 40 x 5 days for continued pain. Day 1/5 on 05/09 (8) DVT prophylaxis Current Visit: No Status: Acute Code(s): XJL8768 - SNOMED Code(s): 520818777 Comment: - SQH for PPX - Warfarin held for INR goal <1.7, currently met - Resume s/p procedure (9) Full code status Current Visit: No Status: Acute Code(s): Z78.9 - OTHER SPECIFIED HEALTH STATUS SNOMED Code(s): 802945008 Status and Disposition: Inpatient, NPO at midnight for orthopedic procedure 05/10
[2018-05-09] MEDS: FEBUXOSTAT 40 MG PO SCH (09:37)
[2018-05-09] MEDS: Colchicine* 0.6 MG TAB PO SCH (09:38)
[2018-05-09] MEDS: Aspirin EC TAB* 81 MG TAB.EC PO SCH (09:39)
[2018-05-09] MEDS: amLODIPine TAB* 5 MG PO SCH (09:39)
[2018-05-09] MEDS: Potassium Chlor TAB* 20 MEQ TAB.ER PO SCH ×3 (09:39→22:24)
[2018-05-09] MEDS: Metoprolol Succinate XL TAB* 50 MG PO SCH (09:39)
[2018-05-09] MEDS: Calcium/Vitamin D TAB 250/125* TAB PO SCH (09:39)
[2018-05-09] MEDS: Famotidine IV* 10 MG/ML 2 ML (20 mg) IV SCH (09:40)
[2018-05-09] MEDS: predniSONE TAB* 20 MG PO SCH (10:03)
[2018-05-09] MEDS: Atorvastatin* 40 MG TAB PO SCH (17:44)
[2018-05-09] MEDS: Terazosin CAP* 1 MG PO SCH (22:24)
[2018-05-09] MEDS: Acetaminophen TAB* 325 MG PO PRN (22:31)
[2018-05-09] MEDS: traMADol TAB* 50 MG PO PRN (22:31)
--- NOTE | 2018-05-10 02:48 | PN ---
Hospitalist Progress Note Date of Service: 05/10/18 HOSPITALIST ADDENDUM Called by Rn because patient is having 2 second pauses, sinus suhail in th 30s, 1st degree AVB while in deep sleep. Asymptomatic when woken up. Suspect component of MARISSA. Will give supplemental O2. May benefit of overnight oximetry.
[2018-05-10 06:21] LABS: ABS Basophils 0 10^3/ul (0-0.2); ABS Eosinophils 0 10^3/ul (0-0.6); ABS Lymphocytes 1.1 10^3/ul (1.0-4.8); ABS Monocytes 0.7 10^3/ul (0-0.8); ABS Neutrophils 7.9 10^3/ul (1.5-7.7); ABS Nucleated RBC 0 10^3/ul; Eosinophil % 0.1 %; Hematocrit 29 % (36-46); Hemoglobin 9.7 g/dL (14.0-18.0); Lymphocyte % 11.4 %; Mean Corpuscular HGB Conc 33 g/dL (31-36); Mean Corpuscular Hemoglobin 30 pg (27-31); Mean Corpuscular Volume 91 fL (80-94); Mean Platelet Volume 7.5 fL (7.4-10.4); Nucleated Red Blood Cells % 0; Platelet Count 444 10^3/uL (150-450); Red Blood Count 3.22 10^6 /uL (4.18-5.48); Red Cell Distribution Width 14 % (10.5-15); White Blood Count 9.7 10^3/uL (3.5-10.8)
[2018-05-10 06:24] LABS: INR 1.1 (0.77-1.02)
[2018-05-10] MEDS: Heparin VIAL(*) 5000 UNITS/ML VIAL (FIVE THOUSAND) SUBCUT SCH ×2 (06:29→14:19)
[2018-05-10 06:38] LABS: BUN/Creatinine Ratio 20.4 (8-20); Calcium 9.4 mg/dL (8.6-10.3); EGFR African American 40.9 (>60); EGFR Non-African American 33.8 (>60); Potassium 4.2 mmol/L (3.5-5.0)
[2018-05-10] MEDS: Metoprolol Succinate XL TAB* 50 MG PO SCH (10:03)
[2018-05-10] MEDS: Famotidine IV* 10 MG/ML 2 ML (20 mg) IV SCH (10:03)
[2018-05-10] MEDS: traMADol TAB* 50 MG PO PRN ×3 (10:03→23:57)
[2018-05-10] MEDS: predniSONE TAB* 20 MG PO SCH (10:03)
[2018-05-10] MEDS: Acetaminophen TAB* 325 MG PO PRN ×2 (10:04→19:12)
[2018-05-10] MEDS: Potassium Chlor TAB* 20 MEQ TAB.ER PO SCH ×3 (10:08→20:09)
[2018-05-10] MEDS: Calcium/Vitamin D TAB 250/125* TAB PO SCH (10:08)
--- NOTE | 2018-05-10 12:28 | PN ---
Subjective Date of Service: 05/10/18 Interval History: HD #3 on 05/10 72M PMH HTN, CAD s/p CABGx1, s/p AVR, HLD, gout, chronic neuropathy, CKD Stage 3 who is s/p R THR on 04/19 c/b blood loss intraopertively and subsequent ATN, readmitted from rehab w/ R hip dislocation and gout flare. Pending open reduction on 05/10. Overnight no acute events. VSS, on tele [facility] c/w 1st degree block, [place] pt with undx MARISSA Labs 05/09 Reviewed, stable. Attempted to see patient throughout day though was in OR during afternoon and returned after my departure, I spoke with ortho team who reported no issues, and nursing team who reported no issues Objective Active Medications: Acetaminophen (Tylenol Tab*) 650 mg PO Q6H PRN PRN Reason: PAIN Last Admin: 05/10/18 10:04 Dose: 650 mg Amlodipine Besylate ([facility]vasc Tab*) [facility] [place] [facility] [place] Last Admin: 05/09/18 09:39 Dose: 10 mg Aspirin (Aspirin Ec Tab*) [facility] [place] [facility] [place] Last Admin: 05/09/18 09:39 Dose: 81 mg Atorvastatin Calcium (Lipitor*) 40 mg PO QPM [facility] Last Admin: 05/09/18 17:44 Dose: 40 mg Bisacodyl (Dulcolax Ec Tab*) 10 mg PO DAILY PRN PRN Reason: CONSTIPATION Calcium/Vitamin D (Oscal D Tab 250/125*) 1 tab PO [facility] Last Admin: 05/10/18 10:08 Dose: Not Given Colchicine (Colcrys*) 0.6 mg PO DAILY [facility] Last Admin: 05/09/18 09:38 Dose: 0.6 mg Famotidine (Pepcid Iv*) 20 mg IV DAILY [facility] Last Admin: 05/10/18 10:03 Dose: 20 mg Febuxostat (Uloric(Nf)) [facility] [place] [facility] [place] Last Admin: 05/09/18 09:37 Dose: 40 mg Heparin Sodium (Porcine) (Heparin Vial(*)) 5,000 units SUBCUT Q8HR [facility] Last Admin: 05/10/18 06:29 Dose: Not Given Magnesium Hydroxide (Milk Of Magnesia Liq*) 30 ml PO DAILY PRN PRN Reason: CONSTIPATION Metoprolol Succinate (Toprol Xl Tab*) 50 mg PO QAM [facility] Last Admin: 05/10/18 10:03 Dose: 50 mg Oxycodone HCl (Roxycodone Tab*) 5 mg PO Q4H PRN PRN Reason: PAIN - SEVERE Potassium Chloride (Klor Con Er Tab*) 20 meq PO TID [facility] Last Admin: 05/10/18 10:08 Dose: Not Given Prednisone (Deltasone Tab*) 40 mg PO DAILY [facility] Stop: 05/13/18 09:01 Last Admin: 05/10/18 10:03 Dose: 40 mg Terazosin HCl (Hytrin Cap*) 1 mg PO BEDTIME [facility] Last Admin: 05/09/18 22:24 Dose: 1 mg Tramadol HCl (Ultram*) 50 mg PO Q6HR PRN PRN Reason: PAIN Last Admin: 05/10/18 10:03 Dose: 50 mg Vital Signs - 8 hr 05/10/18 05/10/18 05/10/18 07:10 07:49 10:03 Temperature 97.7 F Pulse Rate 77 Respiratory 20 20 16 Rate Blood Pressure 135/88 (mmHg) O2 Sat by Pulse 98 Oximetry Oxygen Devices in Use Now: Nasal Cannula Appearance: Unable to examine pt 2/2 to being in OR then PACU Result Diagrams: 05/10/18 05:49 05/10/18 05:49 Microbiology and Other Data: Microbiology 05/08/18 14:55 Nasal Screen MRSA (PCR) - Final Nasal Mrsa Not Detected Assess/Plan/Problems-Billing Assessment: 72M PMH HTN, CAD s/p CABGx1, s/p AVR with resultant HFpEF (last EF 60% 2019) HLD, gout, chronic neuropathy, CKD Stage 3 who is s/p R THR on 04/19 c/b blood loss intraopertively and subsequent ATN, readmitted from rehab w/ R hip dislocation and gout flare. Pending open reduction on 05/10. - Patient Problems (1) Hip dislocation, right Current Visit: Yes Status: Acute Code(s): S73.004A - UNSPECIFIED DISLOCATION OF RIGHT HIP, INITIAL ENCOUNTER SNOMED Code(s): 091348774 Comment: - In setting of R THR 04/19. Attempted closed reduction failed - s/p open reduction 05/10 - Percautions per ortho, non weight bearing (2) CKD (chronic kidney disease) stage 3, GFR 30-59 ml/min Current Visit: Yes Status: Acute Code(s): N18.3 - CHRONIC KIDNEY DISEASE, STAGE 3 (MODERATE) SNOMED Code(s): 191502976 Comment: - With recent ATN Mar 2018 in setting of acute blood loss anemia - CTM, good UOP - Renally dose medications (3) CAD (coronary artery disease) Current Visit: No Status: Acute Code(s): I25.10 - ATHSCL HEART DISEASE OF [place] CORONARY ARTERY W/O ANG PCTRS SNOMED Code(s): 70041149 Comment: - Stable and without c/o chest pain. Tele for the day with RN concern for ectopy, will d/c if no abnormalities noted - Continue aspirin, atorvastatin and metoprolol. Not on ACEI. (4) Diastolic CHF Current Visit: No Status: Acute Code(s): I50.30 - UNSPECIFIED DIASTOLIC ( CONGESTIVE) HEART FAILURE SNOMED Code(s): 879178439 Comment: - No signs of fluid overload. - EF 60% recently with normal AV s/p AVR - On BB, Statin, Asa, not on fluid mgmt at this time. - Rhytym: Sinus, w 1stDB (5) Hypertension Current Visit: Yes Status: Acute Code(s): I10 - ESSENTIAL (PRIMARY) HYPERTENSION SNOMED Code(s): 58997852 Comment: - Fair control, continue to monitor - Continue home Amlodipine, Metoprolol (6) BPH (benign prostatic hyperplasia) Current Visit: No Status: Acute Code(s): N40.0 - BENIGN PROSTATIC HYPERPLASIA WITHOUT LOWER URINRY TRACT SYMP SNOMED Code(s): 564926530 Comment: - Continue terazosin. (7) Gout Current Visit: Yes Status: Acute Code(s): M10.9 - GOUT, UNSPECIFIED SNOMED Code(s): 67116634 Comment: - Recent flare, with good control on below - On colchicine, Febuxostat, start pred burst 40 x 5 days for continued pain. Day 1/5 on 05/09 (8) DVT prophylaxis Current Visit: No Status: Acute Code(s): PDL1276 - SNOMED Code(s): 452472622 Comment: - SQH for PPX - Warfarin held for INR goal <1.7, currently met - Resume s/p procedure (9) Full code status Current Visit: No Status: Acute Code(s): Z78.9 - OTHER SPECIFIED HEALTH STATUS SNOMED Code(s): 018062776 Status and Disposition: orthopedic procedure 05/10
[2018-05-10] MEDS ORDERED: Sugammadex * 200 MG/2 ML VIAL IV PUSH ONE (13:13)
[2018-05-10] MEDS ORDERED: Rocuronium* 10 MG/ML VIAL ONE (13:14)
[2018-05-10] MEDS ORDERED: ceFAZolin 1 GM in Dextrose (*) 1 GM/50 ML BAG IVPB ONE (13:21)
[2018-05-10] MEDS ORDERED: ceFAZolin 2 GM in NS PREMIX(*) 2 GM/100 ML BAG IVPB ONE (13:21)
[2018-05-10] MEDS ORDERED: Propofol* 10 MG/ML 20 ML BTL ONE (13:48)
[2018-05-10] MEDS ORDERED: fentaNYL* 50 MCG/ML 2 ML VIAL (100 MCG VIAL) ONE ×4 (13:48→17:54)
[2018-05-10] MEDS ORDERED: Midazolam* 1 MG/ML 2 ML VIAL (2 MG) ONE (13:48)
[2018-05-10] MEDS ORDERED: Lidocaine 2% PF * 5 ML VIAL ONE ×2 (13:48→15:56)
[2018-05-10] MEDS ORDERED: Dexamethasone IV* 4 MG/ML 1 ML (4 MG) ONE (14:51)
[2018-05-10] MEDS ORDERED: Ondansetron INJ* 2 MG/ML VIAL ONE (14:51)
[2018-05-10] MEDS ORDERED: Phenylephrine IV* 40 MCG/ML 10 ML SYRINGE ONE (14:57)
[2018-05-10] MEDS ORDERED: Vancomycin(*) 1,000 MG VIAL ONE (15:25)
[2018-05-10] MEDS ORDERED: Glycopyrrolate IV* 0.2 MG/ML 1 ML VIAL ONE (15:55)
[2018-05-10] MEDS ORDERED: Neostigmine Methylsulfate* 3 MG/3 ML SYRINGE ONE (15:55)
[2018-05-10] MEDS ORDERED: HYDROmorphone INJ1* 1 MG/ML SYRINGE IV PRN (16:32)
[2018-05-10] MEDS ORDERED: Naloxone* 0.4 MG/ML 1 ML VIAL IV PRN (16:32)
[2018-05-10] MEDS: fentaNYL* 50 MCG/ML 2 ML VIAL (100 MCG VIAL) IV PRN ×2 (17:58→18:26)
[2018-05-10] MEDS ORDERED: Morphine INJ* 2 MG/ML 1 ML SYRINGE (TWO MG - NEW SYRINGE VERSION) IV PRN (18:00)
[2018-05-10] MEDS ORDERED: traMADol TAB* 50 MG ONE (19:11)
[2018-05-10] MEDS ORDERED: Acetaminophen TAB* 325 MG ONE (19:11)
[2018-05-10] MEDS: Atorvastatin* 40 MG TAB PO SCH (20:09)
[2018-05-10] MEDS: Aspirin EC TAB* 81 MG TAB.EC PO SCH (20:10)
[2018-05-10] MEDS: oxyCODONE TAB* 5 MG TAB PO PRN (20:10)
[2018-05-10] MEDS: amLODIPine TAB* 5 MG PO SCH (20:10)
[2018-05-10] MEDS: Colchicine* 0.6 MG TAB PO SCH (20:10)
[2018-05-10] MEDS: Terazosin CAP* 1 MG PO SCH (20:10)
[2018-05-10] MEDS: FEBUXOSTAT 40 MG PO SCH (20:11)
--- NOTE | 2018-05-10 21:11 | OP ---
DATE OF OPERATION: 05/10/18 - ROOM #350 DATE OF : 45 ATTENDING SURGEON: Alexy Gaxiola MD STROKE COORDINATOR: Italia Lang RPA ANESTHESIA: General. PRE-OP DIAGNOSIS: Loose femoral component, right total hip. POST-OP DIAGNOSIS: Loose femoral component, right total hip. OPERATIVE PROCEDURE: Revision right total hip arthroplasty, femur and acetabular lining. ESTIMATED BLOOD LOSS: 250 cc. COMPLICATIONS: None. HARDWARE: Cemented VerSys 13 x 170 mm stem; 62 mm elevated liner; +7, 36 mm head. INDICATIONS: Mr. Myles is a 72-year-old male who had sudden onset of right hip pain in January. He had under-gone metal on metal hip arthroplasties in 2005 and 2006, had done well until January. He had very specific bony destruction about the greater trochanter and aspirations found a thick inflammatory sludge- like material. I discussed with him that revising the hip to a nonmetal on metal bearing should help to decrease the metal ion load and thereby decrease the inflammatory response. Three weeks ago, he did undergo revision surgery and his components had been still solidly bonded to the bone. It was an extended period of time to get those components out and I did an extended trochanteric osteotomy. I had then repaired the osteotomy and then placed components in, and initially, he seemed to do well. He had gone to the swing bed services at [facility] and x-rays at the end of the second week from surgery looked good. Last , Physical Therapy had contacted me that his leg was shorter and he was having troubles with bringing the leg up. X-rays taken Thursday morning found the hip to be dislocated. I took him to the OR at [facility] Thursday afternoon, and then under live C-arm guidance, I saw the femoral component move just as I placed traction on the leg. I discussed with Mr. Myles that the femoral component was loose and we would need to go back in, and this time, I would cement it into place. I was unsure if the fin has cut through his bone or if just the inflammation within the joint had also caused enough bony damage to cause this component to loosen. Risks of surgery such as infection, scar formation, continued dislocation, leg length discrepancy were some of the risks discussed. He was transferred from [facility] back to [facility] here on Thursday and the hospitalist service did a very good job reversing his Coumadin and getting him ready for the OR this morning. He also had been declared medically optimized for surgery. DESCRIPTION OF PROCEDURE: The patient was brought to the OR and general endotracheal anesthesia was established. Ambriz catheter was placed. He was then rolled into the left lateral decubitus position and an axillary roll was placed. Right hip area was prepped and then draped. Incision was made centered over the old scar and carried down through subcutaneous tissues. Small sutures were found and were picked out. Fascia was intact. I was able to find the ridge where I believe my fascial repair was, and with incising this, gush of thin bloody fluid was encountered. This was sent for cultures and gram-stain. Fascia continued to be dissected, and with opening his fascia, I could see the ball sitting right above the area where I had repaired the short external rotators. The short external rotators were again taken down from the back side of the femur and I was able just to pull the femoral component out. Anterior C- retractor was placed as well as an inferior Hohmann and several drill holes were placed and a screw was attempted to be placed to pull out the acetabular liner and eventually liner was removed. Elevated liner was then placed. Attention was turned to the femur. Backscratcher was used to scrape out a little bit of the blood clots, and then beginning with a 9 reamer, he was progressively reamed for the VerSys broaches. At 13, I did have a little bit of bony loss and I was very concerned considering that when I had reamed for the other components I had reamed anteriorly his anterior cortex relatively thin. Pulse lavage was used to clean and wash the area, and then using the backscratcher, I could feel that I still had cortex all around. The old osteotomy repair was holding very nicely so that this was not taken down. It was evident he had a greater trochanteric fracture from his followup x-rays and greater troch was loose, but still attached. Using the brush, additional soft tissues were removed from the intramedullary canal of the femur. Cement restrictor was placed and pulse lavage was used to clean the canal. Cement was being prepared. Cement was placed from distal to proximal, and a 15 stem was then impacted into place. Good solid fit was obtained and great care was taken because we could not fully bring up to 90 degrees and I had wanted approximately 20 degrees of anteversion of the femoral component. Cement was allowed to harden and extra cement was removed. He was trialed with a 7 head and his leg length seemed to be quite good and he had excellent stability. He could easily be flexed up, internally rotated, adducted, and maneuvered and he held in nicely. The 7 head was then impacted into place. Trochanteric claw was then placed and eventually the passes were found and the wires were passed around the proximal femur. These were then tightened to approximately 75 pounds of pressure. Wound was again irrigated using pulse lavage and then sprinkled with 1 g of vancomycin. Fascia was closed and wound was again copiously pulse lavaged. Subcutaneous tissues were reapproximated with 2-0 Vicryl, skin was closed using roland. Sterile dressing was applied. X-ray was obtained in the OR as the nurses had not done the initial counts. He was then awakened, stable on transfer to the recovery room. [id number]/[facility] #: [id number] DAVID
[2018-05-10] MEDS: Warfarin TAB(*) 6 MG PO SCH (22:45)
[2018-05-10] MEDS: ceFAZolin 1 GM in Dextrose (*) 1 GM/50 ML BAG IVPB SCH (22:45)
[2018-05-11] MEDS: Acetaminophen TAB* 325 MG PO PRN ×3 (00:13→12:29)
[2018-05-11] MEDS: oxyCODONE TAB* 5 MG TAB PO PRN ×3 (01:51→14:01)
[2018-05-11] MEDS: traMADol TAB* 50 MG PO PRN ×3 (06:18→18:33)
[2018-05-11] MEDS: ceFAZolin 1 GM in Dextrose (*) 1 GM/50 ML BAG IVPB SCH (06:19)
[2018-05-11 06:21] LABS: ABS Basophils 0 10^3/ul (0-0.2); ABS Eosinophils 0 10^3/ul (0-0.6); ABS Lymphocytes 0.8 10^3/ul (1.0-4.8); ABS Monocytes 0.5 10^3/ul (0-0.8); ABS Neutrophils 7.3 10^3/ul (1.5-7.7); ABS Nucleated RBC 0 10^3/ul; Eosinophil % 0 %; Hematocrit 25 % (36-46); Hemoglobin 8.5 g/dL (14.0-18.0); Lymphocyte % 9.3 %; Mean Corpuscular HGB Conc 34 g/dL (31-36); Mean Corpuscular Hemoglobin 31 pg (27-31); Mean Corpuscular Volume 91 fL (80-94); Mean Platelet Volume 7.3 fL (7.4-10.4); Nucleated Red Blood Cells % 0; Platelet Count 403 10^3/uL (150-450); Red Blood Count 2.74 10^6 /uL (4.18-5.48); Red Cell Distribution Width 14 % (10.5-15); White Blood Count 8.6 10^3/uL (3.5-10.8)
[2018-05-11 06:32] LABS: Calcium 8.7 mg/dL (8.6-10.3); EGFR Non-African American 27.3 (>60)
[2018-05-11 07:02] LABS: Potassium 5.1 mmol/L (3.5-5.0)
--- NOTE | 2018-05-11 08:39 | PN ---
Subjective Date of Service: 05/11/18 Interval History: HD #4 on 05/11 72M PMH HTN, CAD s/p CABGx1, s/p AVR, HLD, gout, chronic neuropathy, CKD Stage 3 who is s/p R THR on 04/19 c/b blood loss intraopertively and subsequent ATN, readmitted from rehab w/ R hip dislocation and gout flare. s/p THR revision 05/10 POD #1 Overnight no acute events. VSS, [facility] tele [facility] pases c/w 1st degree block, liekly pt with undx MARISSA Labs 05/10 reveiwed, anemia This afternoon pleasant and well without complaints, anxious to go, we discuss MARISSA, he wants to put that off. Otherwise doing OK, feels pain is managable, no CP SOB GI or MSK compalints Objective Active Medications: Acetaminophen (Tylenol Tab*) 650 mg PO Q6H PRN PRN Reason: PAIN Last Admin: 05/11/18 06:18 Dose: 650 mg Amlodipine Besylate (Norvasc Tab*) 10 mg PO DAILY [facility] Atorvastatin Calcium (Lipitor*) 40 mg PO QPM [facility] Last Admin: 05/10/18 20:09 Dose: 40 mg Bisacodyl (Dulcolax Ec Tab*) 10 mg PO DAILY PRN PRN Reason: CONSTIPATION Calcium/Vitamin D (Oscal D Tab 250/125*) 1 tab PO QAM [facility] Last Admin: 05/10/18 10:08 Dose: Not Given Colchicine (Colcrys*) 0.6 mg PO DAILY [facility] Last Admin: 05/10/18 20:10 Dose: 0.6 mg Famotidine (Pepcid Iv*) 20 mg IV DAILY [facility] Last Admin: 05/10/18 10:03 Dose: 20 mg Febuxostat (Uloric(Nf)) 40 mg PO QAM [facility] Last Admin: 05/10/18 20:11 Dose: 40 mg Heparin Sodium (Porcine) (Heparin Vial(*)) 5,000 units SUBCUT Q8HR [facility] Cefazolin Sodium 500 mg/ (Sodium Chloride) 50 mls @ 200 mls/hr IVPB Q12H [facility] Stop: 05/11/18 18:14 Magnesium Hydroxide (Milk Of Magnesia Liq*) 30 ml PO DAILY PRN PRN Reason: CONSTIPATION Metoprolol Succinate (Toprol Xl Tab*) 50 mg PO QAM [facility] Last Admin: 05/10/18 10:03 Dose: 50 mg Morphine Sulfate (Morphine Inj (Syringe))*) 2 mg IV Q2H PRN PRN Reason: PAIN - SEVERE Oxycodone HCl (Roxycodone Tab*) 5 mg PO Q4H PRN PRN Reason: PAIN - SEVERE Last Admin: 05/11/18 01:51 Dose: 5 mg Potassium Chloride (Klor Con Er Tab*) 20 meq PO TID [facility] Last Admin: 05/10/18 20:09 Dose: 20 meq Prednisone (Deltasone Tab*) 40 mg PO DAILY [facility] Stop: 05/13/18 09:01 Last Admin: 05/10/18 10:03 Dose: 40 mg Terazosin HCl (Hytrin Cap*) 1 mg PO BEDTIME [facility] Last Admin: 05/10/18 20:10 Dose: 1 mg Tramadol HCl (Ultram*) 50 mg PO Q6HR PRN PRN Reason: PAIN Last Admin: 05/11/18 06:18 Dose: 50 mg Warfarin Sodium (Coumadin Tab(*)) 6 mg PO DAILY@1700 [facility] Last Admin: 05/10/18 22:45 Dose: 6 mg Vital Signs - 8 hr 05/11/18 05/11/18 05/11/18 01:46 01:51 04:06 Temperature 97.5 F 98.5 F Pulse Rate 79 81 Respiratory 18 17 Rate Blood Pressure 147/83 139/76 (mmHg) O2 Sat by Pulse 97 94 Oximetry 05/11/18 05/11/18 05/11/18 06:18 06:21 07:57 Temperature 98.3 F Pulse Rate 79 Respiratory 17 17 16 Rate Blood Pressure 157/87 (mmHg) O2 Sat by Pulse 98 Oximetry Oxygen Devices in Use Now: Nasal Cannula Appearance: Pleasant man in NAD Eyes: No Scleral Icterus Ears/Nose/Mouth/Throat: NL Teeth, Lips, Gums, Clear Oropharnyx Neck: NL Appearance and Movements; NL JVP, Trachea Midline Respiratory: Symmetrical Chest Expansion and Respiratory Effort, Clear to Auscultation Cardiovascular: NL Sounds; No Murmurs; No JVD, RRR Abdominal: NL Sounds; No Tenderness; No Distention, No Hepatosplenomegaly Lymphatic: No Cervical Adenopathy Skin: No Rash or Ulcers Neurological: Alert and Oriented x 3 Result Diagrams: 05/11/18 05:47 05/11/18 05:47 Microbiology and Other Data: Microbiology 05/08/18 14:55 Nasal Screen MRSA (PCR) - Final Nasal Mrsa Not Detected Assess/Plan/Problems-Billing Assessment: 72M PMH HTN, CAD s/p CABGx1, s/p AVR with resultant HFpEF (last EF 60% 2018) HLD, gout, chronic neuropathy, CKD Stage 3 who is s/p R THR on 04/19 c/b blood loss intraopertively and subsequent ATN, readmitted from rehab w/ R hip dislocation and gout flare. s/p revision THR on 05/10, doing well - Patient Problems (1) Hip dislocation, right Current Visit: Yes Status: Acute Code(s): S73.004A - UNSPECIFIED DISLOCATION OF RIGHT HIP, INITIAL ENCOUNTER SNOMED Code(s): 908088847 Comment: - In setting of R THR 04/19. Attempted closed reduction failed - s/p open reduction, revision THR 05/10 - Percautions per ortho, non weight bearing (2) CKD (chronic kidney disease) stage 3, GFR 30-59 ml/min Current Visit: Yes Status: Acute Code(s): N18.3 - CHRONIC KIDNEY DISEASE, STAGE 3 (MODERATE) SNOMED Code(s): 154573965 Comment: - With recent ATN Mar 2018 in setting of acute blood loss anemia - CTM, good UOP - Renally dose medications (3) CAD (coronary artery disease) Current Visit: No Status: Acute Code(s): I25.10 - ATHSCL HEART DISEASE OF [place] CORONARY ARTERY W/O ANG PCTRS SNOMED Code(s): 33153370 Comment: - Stable and without c/o chest pain. Tele for the day with RN concern for ectopy, will d/c if no abnormalities noted - Continue aspirin, atorvastatin and metoprolol. Not on ACEI. (4) Diastolic CHF Current Visit: No Status: Acute Code(s): I50.30 - UNSPECIFIED DIASTOLIC ( CONGESTIVE) HEART FAILURE SNOMED Code(s): 087213746 Comment: - No signs of fluid overload. - EF 60% recently with normal AV s/p AVR - On BB, Statin, Asa, not on fluid mgmt at this time. - Rhytym: Sinus, w 1stDB (5) Hypertension Current Visit: Yes Status: Acute Code(s): I10 - ESSENTIAL (PRIMARY) HYPERTENSION SNOMED Code(s): 69632128 Comment: - Fair control, continue to monitor - Continue home Amlodipine, Metoprolol (6) BPH (benign prostatic hyperplasia) Current Visit: No Status: Acute Code(s): N40.0 - BENIGN PROSTATIC HYPERPLASIA WITHOUT LOWER URINRY TRACT SYMP SNOMED Code(s): 687928516 Comment: - Continue terazosin. (7) Gout Current Visit: Yes Status: Acute Code(s): M10.9 - GOUT, UNSPECIFIED SNOMED Code(s): 06986861 Comment: - Recent flare, with good control on below - On colchicine, Febuxostat, start pred burst 40 x 5 days for continued pain. Day 1/5 on 05/09 (8) DVT prophylaxis Current Visit: No Status: Acute Code(s): VOR0730 - SNOMED Code(s): 893984599 Comment: - SQH for PPX - Warfarin held for INR goal <1.7, currently met - Resume s/p procedure (9) Full code status Current Visit: No Status: Acute Code(s): Z78.9 - OTHER SPECIFIED HEALTH STATUS SNOMED Code(s): 738862995 Status and Disposition: Medically stable for d/c
[2018-05-11] MEDS: amLODIPine TAB* 5 MG PO SCH (09:17)
[2018-05-11] MEDS: Calcium/Vitamin D TAB 250/125* TAB PO SCH (09:18)
[2018-05-11] MEDS: FEBUXOSTAT 40 MG PO SCH (09:18)
[2018-05-11] MEDS: Metoprolol Succinate XL TAB* 50 MG PO SCH (09:19)
[2018-05-11] MEDS: Potassium Chlor TAB* 20 MEQ TAB.ER PO SCH ×3 (09:19→22:37)
[2018-05-11] MEDS ORDERED: Lactated Ringers 1000 ML Bag* 1,000 ML IV SCH (10:00)
[2018-05-11] MEDS ORDERED: Docusate CAP* 100 MG PO PRN (10:13)
--- NOTE | 2018-05-11 10:42 | PN ---
Progress Note - Progress Note Date of Service: 05/11/18 SOAP: Subjective: [] Patient was seen and examined at bedside. He is feeling well this morning, hip pain is rated at 4/10 and sore in nature. Reports some swelling of right leg and knee. Denies CP, SOB, dizziness, nausea. Objective: []General: NAD, laying comfortably in bed RLE: Right hip dressing CDI, marked for radiation treatment. Thigh and knee mildly edematous though soft and nontender. DF/PF intact, DP2+, sensation intact to light touch distally, DP2+ Calves supple and nontender without erythema, edema or palpable cords Assessment: []POD 1 sp Right hip revision, troch plate Plan: []WBAT No active abduction PT/OT Radiation for prevention of Heterotopic ossification Heparin bridge to warfarin. Warfarin at 6 mg daily, home dose Vital Signs Temp 98.3 F 05/11/18 07:57 Pulse 79 05/11/18 07:57 Resp 18 05/11/18 09:19 BP 157/87 05/11/18 07:57 Pulse Ox 98 05/11/18 07:57 Intake & Output 05/10/18 05/11/18 05/11/18 18:59 06:59 18:59 Intake Total 1300 1870 Output Total 725 550 Balance 575 1320 Intake: IV Fluids 1300 300 LR 1300 300 IVPB 110 ABX - CEFAZOLIN 110 Oral 1460 Output: Urine 350 Ambriz 375 550 Other: Date of Last Bowel 05/10/18 Movement # Bowel Movements 1 Estimated Stool Amount Medium Estimated Blood Loss 250 Comment Laboratory Last Values WBC 8.6 10^3/uL (3.5-10.8) 05/11/18 05:47 RBC 2.74 10^6 /uL (4.18-5.48) L 05/11/18 05:47 Hgb 8.5 g/dL (14.0-18.0) L 05/11/18 05:47 Hct 25 % (36-46) L 05/11/18 05:47 MCV 91 fL (80-94) 05/11/18 05:47 MCH 31 pg (27-31) 05/11/18 05:47 MCHC 34 g/dL (31-36) 05/11/18 05:47 RDW 14 % (10.5-15) 05/11/18 05:47 Plt Count 403 10^3/uL (150-450) 05/11/18 05:47 MPV 7.3 fL (7.4-10.4) L 05/11/18 05:47 Neut % (Auto) 85.0 % 05/11/18 05:47 Lymph % (Auto) 9.3 % 05/11/18 05:47 Trigg % (Auto) 5.6 % 05/11/18 05:47 Eos % (Auto) 0 % 05/11/18 05:47 Baso % (Auto) 0.1 % 05/11/18 05:47 Absolute Neuts (auto) 7.3 10^3/ul (1.5-7.7) 05/11/18 05:47 Absolute Lymphs (auto) 0.8 10^3/ul (1.0-4.8) L 05/11/18 05:47 Absolute Monos (auto) 0.5 10^3/ul (0-0.8) 05/11/18 05:47 Absolute Eos (auto) 0 10^3/ul (0-0.6) 05/11/18 05:47 Absolute Basos (auto) 0 10^3/ul (0-0.2) 05/11/18 05:47 Absolute Nucleated RBC 0 10^3/ul 05/11/18 05:47 Nucleated RBC % 0 05/11/18 05:47 INR (Anticoag Therapy) 1.10 (0.77-1.02) H 05/10/18 05:49 Sodium 137 mmol/L (135-145) 05/11/18 05:47 Potassium 5.1 mmol/L (3.5-5.0) H 05/11/18 05:47 Chloride 106 mmol/L (101-111) 05/11/18 05:47 Carbon Dioxide 22 mmol/L (22-32) 05/11/18 05:47 Anion Gap 9 mmol/L (2-11) 05/11/18 05:47 BUN 52 mg/dL (6-24) H 05/11/18 05:47 Creatinine 2.36 mg/dL (0.67-1.17) H 05/11/18 05:47 Est GFR ( Amer) 33.0 (>60) 05/11/18 05:47 Est GFR (Non-Af Amer) 27.3 (>60) 05/11/18 05:47 BUN/Creatinine Ratio 22.0 (8-20) H 05/11/18 05:47 Glucose 123 mg/dL (70-100) H 05/11/18 05:47 Calcium 8.7 mg/dL (8.6-10.3) 05/11/18 05:47 Total Bilirubin 0.30 mg/dL (0.2-1.0) 05/08/18 16:47 AST 20 U/L (13-39) 05/08/18 16:47 ALT 20 U/L (7-52) 05/08/18 16:47 Alkaline Phosphatase 75 U/L (34-104) 05/08/18 16:47 Total Protein 5.8 g/dL (6.4-8.9) L 05/08/18 16:47 Albumin 3.1 g/dL (3.2-5.2) L 05/08/18 16:47 Globulin 2.7 g/dL (2-4) 05/08/18 16:47 Albumin/Globulin Ratio 1.1 (1-3) 05/08/18 16:47
[2018-05-11] MEDS: Colchicine* 0.6 MG TAB PO SCH (10:59)
[2018-05-11] MEDS: Famotidine IV* 10 MG/ML 2 ML (20 mg) IV SCH (10:59)
[2018-05-11] MEDS: Heparin VIAL(*) 5000 UNITS/ML VIAL (FIVE THOUSAND) SUBCUT SCH ×2 (14:01→22:37)
[2018-05-11 14:21] LABS: INR 1.23 (0.77-1.02)
[2018-05-11] MEDS: Atorvastatin* 40 MG TAB PO SCH (16:40)
[2018-05-11] MEDS: Warfarin TAB(*) 6 MG PO SCH (16:40)
--- NOTE | 2018-05-11 16:48 | RADMED ---
CC: Dr. Gaxiola; Dr. Liao; Dr. Italia Kruse; Dr. Sabrina Meyer * RADIATION ONCOLOGY INPATIENT CONSULTATION NOTE: DATE OF CONSULT: 05/11/18 - ROOM #350 HISTORY OF PRESENT ILLNESS: Dameon Myles is a 72-year-old gentleman with a history of arthritis and bilateral hip replacements. His right hip replacement required revision and he has also had a history of heterotopic ossification in that area in the past. On 05/10/18, he underwent revision of right total hip arthroplasty, femur and acetabular lining, which was uncomplicated. With concern for high risk of additional heterotopic ossification, he is referred for radiation oncology consultation regarding heterotopic ossification prophylaxis. PAST MEDICAL HISTORY: Arthritis, as in the history of present illness. History of kidney disease, hypertension, coronary artery disease, aortic valve replacement, hyperlipidemia, benign prostatic hypertrophy, gout, peripheral neuropathy. MEDICATIONS: As per the inpatient record. ALLERGIES: ALLOPURINOL, HYDROXYZINE, TICAGRELOR. FAMILY HISTORY: Noncontributory. SOCIAL HISTORY: He is a never smoker. REVIEW OF SYSTEMS: As in the history of present illness, significant for some pain postoperatively, no other symptomatic complaints or concerns reported on complete review of systems. PHYSICAL EXAM: Vital Signs: Temperature 98, pulse rate 76, respiratory rate 16 , blood pressure 148/71, oxygen saturation 96% on room air. General: He is awake, alert, and oriented, in no acute distress. Normocephalic, atraumatic. Sclerae are anicteric. Neck: Supple, full range of motion. Midline trachea. No mass palpable in the neck or thyroid. Lungs: Clear to auscultation. Cardiovascular: S1, S2. Abdomen: Soft, nontender. Extremities: Dressing in place on the right hip. No cyanosis. ASSESSMENT AND PLAN: Dameon Myles is a 72-year-old gentleman with osteoarthritis and revision of right total hip arthroplasty and history of heterotopic ossification in the past. He is referred for consideration of heterotopic ossification prophylaxis with single fraction radiation therapy. I did review with him the logistics and rationale for this treatment, including risks, benefits, and alternatives as well as the acute and long-term frequent and uncommon toxicities, and did answer his questions to the best of my ability. He is inclined to proceed with heterotopic ossification prophylaxis as discussed, and did sign informed consent. He will undergo CT simulation to facilitate treatment plan. Per his situation, I recommend 700 cGy in a single fraction, planned to be delivered later today, 05/11/18. Thank you for giving me the opportunity to participate in the care of this very pleasant gentleman. [id number]/[facility] #: [id number] MARTHAD
[2018-05-11] MEDS ORDERED: ceFAZolin 500 MG VIAL(*) 500 MG in NS 0.9% 50 ML* 50 ML IVPB SCH (18:00)
[2018-05-11 20:14] LABS: Platelet Count 401 10^3/uL (150-450)
[2018-05-11] MEDS: Terazosin CAP* 1 MG PO SCH (22:37)
[2018-05-12 05:30] LABS: Hematocrit 22 % (36-46); Hemoglobin 7.7 g/dL (14.0-18.0)
[2018-05-12 05:46] LABS: BUN/Creatinine Ratio 25.7 (8-20); Calcium 8.2 mg/dL (8.6-10.3); EGFR Non-African American 23.1 (>60); Potassium 4.5 mmol/L (3.5-5.0)
[2018-05-12] MEDS: Heparin VIAL(*) 5000 UNITS/ML VIAL (FIVE THOUSAND) SUBCUT SCH ×2 (06:26→14:16)
[2018-05-12] MEDS: traMADol TAB* 50 MG PO PRN ×2 (06:27→12:35)
[2018-05-12] MEDS: Acetaminophen TAB* 325 MG PO PRN ×2 (06:27→12:35)
[2018-05-12 08:32] VITALS: BP 117/66
--- NOTE | 2018-05-12 08:35 | PN ---
Subjective Date of Service: 05/12/18 Interval History: HD #5 on 05/12 72M PMH HTN, CAD s/p CABGx1, s/p AVR, HLD, gout, chronic neuropathy, CKD Stage 3 who is s/p R THR on 04/19 c/b blood loss intraopertively and subsequent ATN, readmitted from rehab w/ R hip dislocation and gout flare. s/p THR revision 05/10 POD #2 Overnight no acute events. VSS, on tele stable Labs: Hemoglobin 7.7, and asymptomatic, discussed with ortho team, usually henry is POD # 2. Would be fine with watchful waiting. This morning he feels ready to start rehab again, pain manageable, denies CP, SOB, GI issues. Objective Active Medications: Acetaminophen (Tylenol Tab*) 650 mg PO Q6H PRN PRN Reason: PAIN Last Admin: 05/12/18 06:27 Dose: 650 mg Amlodipine Besylate (Norvasc Tab*) 10 mg PO DAILY [facility] Last Admin: 05/11/18 09:17 Dose: 10 mg Aspirin (Aspirin Ec Tab*) 81 mg PO DAILY [facility] Atorvastatin Calcium (Lipitor*) 40 mg PO QPM [facility] Last Admin: 05/11/18 16:40 Dose: 40 mg Bisacodyl (Dulcolax Ec Tab*) 10 mg PO DAILY PRN PRN Reason: CONSTIPATION Calcium/Vitamin D (Oscal D Tab 250/125*) 1 tab PO QAM [facility] Last Admin: 05/11/18 09:18 Dose: 1 tab Colchicine (Colcrys*) 0.6 mg PO DAILY [facility] Last Admin: 05/11/18 10:59 Dose: 0.6 mg Docusate Sodium (Colace Cap*) 100 mg PO BID PRN PRN Reason: CONSTIPATION Famotidine (Pepcid Iv*) 20 mg IV DAILY [facility] Last Admin: 05/11/18 10:59 Dose: 20 mg Febuxostat (Uloric(Nf)) 40 mg PO QAM [facility] Last Admin: 05/11/18 09:18 Dose: 40 mg Heparin Sodium (Porcine) (Heparin Vial(*)) 5,000 units SUBCUT Q8HR [facility] Last Admin: 05/12/18 06:26 Dose: 5,000 units Magnesium Hydroxide (Milk Of Magnesia Liq*) 30 ml PO DAILY PRN PRN Reason: CONSTIPATION Metoprolol Succinate (Toprol Xl Tab*) 50 mg PO QAM [facility] Last Admin: 05/11/18 09:19 Dose: 50 mg Morphine Sulfate (Morphine Inj (Syringe))*) 2 mg IV Q2H PRN PRN Reason: PAIN - SEVERE Oxycodone HCl (Roxycodone Tab*) 5 mg PO Q4H PRN PRN Reason: PAIN - SEVERE Last Admin: 05/11/18 14:01 Dose: 5 mg Potassium Chloride (Klor Con Er Tab*) 20 meq PO TID [facility] Last Admin: 05/11/18 22:37 Dose: 20 meq Terazosin HCl (Hytrin Cap*) 1 mg PO BEDTIME [facility] Last Admin: 05/11/18 22:37 Dose: 1 mg Tramadol HCl (Ultram*) 50 mg PO Q6HR PRN PRN Reason: PAIN Last Admin: 05/12/18 06:27 Dose: 50 mg Warfarin Sodium (Coumadin Tab(*)) 6 mg PO DAILY@1700 [facility] Last Admin: 05/11/18 16:40 Dose: 6 mg Vital Signs - 8 hr 05/12/18 05/12/18 05/12/18 03:53 06:27 07:00 Temperature 98.4 F 98.3 F Pulse Rate 74 63 Respiratory 18 16 16 Rate Blood Pressure 127/71 117/66 (mmHg) O2 Sat by Pulse 98 96 Oximetry Oxygen Devices in Use Now: Nasal Cannula Appearance: Pleasant man sitting up reading the paper Ears/Nose/Mouth/Throat: NL Teeth, Lips, Gums, Mucous Membranes Moist Neck: NL Appearance and Movements; NL JVP Respiratory: Symmetrical Chest Expansion and Respiratory Effort, Clear to Auscultation Cardiovascular: NL Sounds; No Murmurs; No JVD, RRR, - - some ectopy Abdominal: NL Sounds; No Tenderness; No Distention, No Hepatosplenomegaly Lymphatic: No Cervical Adenopathy Skin: No Rash or Ulcers Neurological: Alert and Oriented x 3 Result Diagrams: 05/12/18 05:16 05/12/18 05:16 Microbiology and Other Data: Microbiology 05/08/18 14:55 Nasal Screen MRSA (PCR) - Final Nasal Mrsa Not Detected Assess/Plan/Problems-Billing Assessment: 72M PMH HTN, CAD s/p CABGx1, s/p AVR with resultant HFpEF (last EF 60% 2019) HLD, gout, chronic neuropathy, CKD Stage 3 who is s/p R THR on 04/19 c/ blood loss intraopertively and subsequent ATN, readmitted from rehab w/ R hip dislocation and gout flare. s/p revision THR on 05/10, doing well - Patient Problems (1) Hip dislocation, right Current Visit: Yes Status: Acute Code(s): S73.004A - UNSPECIFIED DISLOCATION OF RIGHT HIP, INITIAL ENCOUNTER SNOMED Code(s): 004073860 Comment: - In setting of R THR 04/19. Attempted closed reduction failed - s/p open reduction, revision THR 05/10 - Percautions per ortho, non weight bearing (2) CKD (chronic kidney disease) stage 3, GFR 30-59 ml/min Current Visit: Yes Status: Acute Code(s): N18.3 - CHRONIC KIDNEY DISEASE, STAGE 3 (MODERATE) SNOMED Code(s): 188083112 Comment: - With recent ATN Mar 2018 in setting of acute blood loss anemia - CTM, good UOP - Renally dose medications (3) Acute blood loss anemia Current Visit: No Status: Acute Code(s): D62 - ACUTE POSTHEMORRHAGIC ANEMIA SNOMED Code(s): 075990539 Comment: Hgb 7.7 today, will have schyuler check at rehabilitation along with INR, tranfuse <7 (4) CAD (coronary artery disease) Current Visit: No Status: Acute Code(s): I25.10 - ATHSCL HEART DISEASE OF [place] CORONARY ARTERY W/O ANG PCTRS SNOMED Code(s): 97048625 Comment: - Stable and without c/o chest pain. - Continue aspirin, atorvastatin and metoprolol. Not on ACEI. (5) Diastolic CHF Current Visit: No Status: Acute Code(s): I50.30 - UNSPECIFIED DIASTOLIC ( CONGESTIVE) HEART FAILURE SNOMED Code(s): 818320059 Comment: - No signs of fluid overload. - EF 60% recently with normal AV s/p AVR - On BB, Statin, Asa, not on fluid mgmt at this time. - Rhytym: Sinus, w 1stDB (6) Hypertension Current Visit: Yes Status: Acute Code(s): I10 - ESSENTIAL (PRIMARY) HYPERTENSION SNOMED Code(s): 01577478 Comment: - Fair control, continue to monitor - Continue home Amlodipine, Metoprolol (7) BPH (benign prostatic hyperplasia) Current Visit: No Status: Acute Code(s): N40.0 - BENIGN PROSTATIC HYPERPLASIA WITHOUT LOWER URINRY TRACT SYMP SNOMED Code(s): 046853311 Comment: - Continue terazosin. (8) Gout Current Visit: Yes Status: Acute Code(s): M10.9 - GOUT, UNSPECIFIED SNOMED Code(s): 40146767 Comment: - Recent flare, with good control on below - On colchicine, Febuxostat, s/p pred with good results (9) DVT prophylaxis Current Visit: No Status: Acute Code(s): NPC5769 - SNOMED Code(s): 955219892 Comment: - Warfarin held for INR goal preop, now yesyerdta INR subtherpeutic, resumed Warfarin, will need INR check at [facility] (10) Full code status Current Visit: No Status: Acute Code(s): Z78.9 - OTHER SPECIFIED HEALTH STATUS SNOMED Code(s): 274052991 Status and Disposition: Medically stable for d/c
[2018-05-12] MEDS ORDERED: Aspirin EC TAB* 81 MG TAB.EC PO SCH (09:00)
[2018-05-12] MEDS: Colchicine* 0.6 MG TAB PO SCH (09:01)
[2018-05-12] MEDS: Metoprolol Succinate XL TAB* 50 MG PO SCH (09:02)
[2018-05-12] MEDS: Calcium/Vitamin D TAB 250/125* TAB PO SCH (09:02)
[2018-05-12] MEDS: Potassium Chlor TAB* 20 MEQ TAB.ER PO SCH ×2 (09:02→14:16)
[2018-05-12] MEDS: amLODIPine TAB* 5 MG PO SCH (09:03)
[2018-05-12] MEDS: FEBUXOSTAT 40 MG PO SCH (09:04)
[2018-05-12] MEDS: Famotidine IV* 10 MG/ML 2 ML (20 mg) IV SCH (09:15)
[2018-05-12 09:26] LABS: INR 1.5 (0.77-1.02)
--- NOTE | 2018-05-12 11:41 | DS ---
DISCHARGE SUMMARY: DATE OF ADMISSION: 05/09/18 DATE OF DISCHARGE: 05/12/18 PRIMARY CARE PROVIDER: John Clarke DO. ORTHOPEDIC PROVIDER: Alexy Gaxiola MD. DISPOSITION ON DISCHARGE: [facility] for continued rehabilitation. PRIMARY DIAGNOSIS: Right hip dislocation, status post total right hip revision intraoperatively on 05/10/18. SECONDARY DIAGNOSES: 1. Hypertension. 2. Coronary artery disease status post CABG x1. 3. Aortic stenosis status post atrial valve replacement. 4. Hyperlipidemia. 5. Gout. 6. Chronic neuropathy. 7. Chronic kidney disease stage 3. MEDICATIONS ON DISCHARGE: 1. Warfarin 6 mg p.o. at 1700. 2. Docusate 100 mg p.o. b.i.d. 3. Aspirin 81 mg p.o. q.a.m. 4. Tramadol 50 mg p.o. q.6 hours p.r.n. for pain. 5. Terazosin 1 mg p.o. q.h.s. 6. Potassium chloride 20 mEq p.o. t.i.d. 7. Oxycodone 5 mg p.o. q.4 hours p.r.n. for pain. 8. Metoprolol succinate 50 mg p.o. q.a.m. 9. Magnesium hydroxide 30 mL p.o. daily p.r.n. for constipation. 10. Febuxostat 40 mg p.o. q.a.m. 11. Calcium/vitamin D one tab 250/125 p.o. q.a.m. 12. Bisacodyl 10 mg p.o. daily p.r.n. for constipation. 13. Atorvastatin 40 mg p.o. q.p.m. 14. Amlodipine 10 mg p.o. daily. 15. Acetaminophen 650 mg p.o. q.6 hours p.r.n. Changes On Medications: Include, the addition of docusate 100 mg p.o. b.i.d. Furthermore, the patient received colchicine 0.6 mg p.o. daily that was discontinued on discharge as the patient was asymptomatic from gout. HISTORY OF PRESENT ILLNESS: A 72-year-old man with the above past medical history who presented from [place] [facility] on 05/09/18 with right hip shortening and external rotation, found to have right hip dislocation, attempted close reduction, and had failed and thus was [place] [facility] open reduction and revision intraoperative of right hip. His hospital course by problem is a follows. 1. Right hip dislocation. The patient underwent successful revision on . His precautions are laid out by Ortho and they recommend continued rehabilitation with recommendations put forth in the discharge packet. They felt that overall surgery was very successful. This is in the setting of a total hip replacement on 04/19/18 that was complicated by intraoperative blood loss and subsequent ATN and he had no complications other than minor blood loss in this hospitalization. 2. Anemia. His hemoglobin on day of discharge is 7.7. This is the henry typically on postop day from hip revision and patient did have a relatively recent study notes of blood loss anemia on his prior total hip replacement at the end of March. We will have Lee check CBC on 05/13/18, transfuse only for less than 7, or between 7 and 8 only if the patient is symptomatic. He is asymptomatic on the day of discharge and feels quite well. 3. Chronic kidney disease. His renal function remains stable. He has had excellent urine output, and we have renally dosed his medications with no problems. 4. Coronary artery disease; status post CABG. We continued his aspirin, atorvastatin, and metoprolol. He is not on an CAROLANN inhibitor secondary to his chronic kidney disease. He has done very well and he has had no chest pain. Of note, the patient did have minor pauses on telemetry overnight and most likely has undiagnosed sleep apnea. When discussed with patient, he is fully aware that he has been suggested to have PSG and he has been suggested to have sleep study and he declines at this time preferring to rehabilitate from his hip replacement first and then would consider getting sleep apnea testing done. It poses no immediate risk to him during interim time. 5. Diastolic congestive heart failure. His EF is 60% with a recently normal aortic valve status post AVR. As above, his rhythm has been sinus with at times block overnight while sleeping, most consistent with obstructive sleep apnea undiagnosed and untreated, which the patient declines treatment or diagnosis at this time. He is already on a beta chayo, statin, and aspirin. No need for fluid management at this time with no signs of fluid overload in this hospitalization. 6. Hypertension. We continued his home amlodipine, metoprolol with fair control. 7. Benign prostatic hyperplasia. We continued his terazosin. 8. Gout. He is on febuxostat and had a recent flare prior to admission, had been on colchicine. We discontinued colchicine in this hospitalization as he was asymptomatic it can be restarted p.r.n. 9. DVT prophylaxis. Warfarin was held for an INR goal preop and yesterday INR was 1.3, warfarin 6 mg was restarted and an INR check will need to occur on 05/13/18, with a goal of 2 to 2.5 per Orthopedics' recommendations. Continue INR checks as per Orthopedics' recommendations on Mondays and until therapeutic. On day of discharge the patient's vital signs are stable. Labs are hemoglobin 7.7, hematocrit 22. BMP: Sodium 138, potassium 4.5, chloride 108, carbon dioxide 23, BUN 70, creatinine 2.7, glucose 106. Last INR 05/11/18 is 1.23. PHYSICAL EXAMINATION: He is a well and pleasant man motivated for rehabilitation. His lungs are clear to auscultation. He has regular rate and rhythm with no murmurs, rubs, or gallop. His abdomen is soft, nontender, nondistended. His right hip has a clean, dry, and intact dressing from recent surgical wound. His left leg has full range of motion with no complications or pain. He has palpable pulses. He has no significant edema other than on his right lower extremity the leg of operation he has 1+ nonpitting edema. He is A and O x3 with no focal neurologic deficits. Items to follow up on post discharge. 1. Subtherapeutic INR. The patient will need to have INR checked frequently for goal of 2 to 2.5 that is put forth by Ortho standards. 2. Anemia. This is secondary to acute blood loss anemia in the setting of anemia that was exacerbated by prior total hip replacement in the end of March. We recommend rechecking the CBC on 05/13/18 transfusion of 1 packed red blood cells for hemoglobin of less than 7 and otherwise watchful waiting for asymptomatic hemoglobin greater than 7 and discussion with orthopedic team the hemoglobin is the lowest on postop day 2 after total hip revision, and so they feel that this will be the henry and expect that hemoglobin will continue to rise and should be monitored. TIME SPENT: Forty five minutes was spent in the planning of this discharge with over half of that spent directly at the bedside of the patient providing direct patient care. Disposition at time of transfer to [facility] is stable. Please do not hesitate to contact us for any questions about the care that this patient received during this hospitalization. [id number]/CPS #: [id number] MTDD
--- NOTE | 2018-05-12 16:04 | PN ---
Progress Note - Progress Note Date of Service: 05/12/18 SOAP: Subjective: []Pt seen and examined OOB in chair. He is feeling well without CP, SOB, dizziness, nausea. Right hip pain is tolerable. Objective: []General: NAD, laying comfortably in a chair RLE: Right hip dressing changed, incision is CDI, Thigh soft and nontender. DF/ PF intact, DP2+, sensation intact to light touch distally, DP2+ Calves supple and nontender without erythema, edema or palpable cords Assessment: []POD 2 sp Right hip revision, troch plate Plan: []WBAT Posterior hip precautions No active abduction PT/OT Heparin bridge to warfarin. Warfarin at 6 mg daily, home dose. heparin until INR 2-3 Return to [facility] today, follow renal labs and h&h Vital Signs Temp 98.3 F 05/12/18 07:00 Pulse 63 05/12/18 07:00 Resp 16 05/12/18 12:35 BP 117/66 05/12/18 07:00 Pulse Ox 96 05/12/18 07:00 Intake & Output 05/11/18 05/12/18 05/12/18 18:59 06:59 18:59 Intake Total 240 920 Output Total 400 955 300 Balance -160 -35 -300 Intake: Oral 240 920 Output: Urine 955 300 Ambriz 400 Other: Date of Last Bowel 05/10/18 Movement # Bowel Movements 1 0 Estimated Stool Amount Medium Laboratory Last Values WBC 8.6 10^3/uL (3.5-10.8) 05/11/18 05:47 RBC 2.74 10^6 /uL (4.18-5.48) L 05/11/18 05:47 Hgb 7.7 g/dL (14.0-18.0) L 05/12/18 05:16 Hct 22 % (36-46) L 05/12/18 05:16 MCV 91 fL (80-94) 05/11/18 05:47 MCH 31 pg (27-31) 05/11/18 05:47 MCHC 34 g/dL (31-36) 05/11/18 05:47 RDW 14 % (10.5-15) 05/11/18 05:47 Plt Count 401 10^3/uL (150-450) 05/11/18 20:06 MPV 7.0 fL (7.4-10.4) L 05/11/18 20:06 Neut % (Auto) 85.0 % 05/11/18 05:47 Lymph % (Auto) 9.3 % 05/11/18 05:47 [place]ays % (Auto) 5.6 % 05/11/18 05:47 Eos % (Auto) 0 % 05/11/18 05:47 Baso % (Auto) 0.1 % 05/11/18 05:47 Absolute Neuts (auto) 7.3 10^3/ul (1.5-7.7) 05/11/18 05:47 Absolute Lymphs (auto) 0.8 10^3/ul (1.0-4.8) L 05/11/18 05:47 Absolute Monos (auto) 0.5 10^3/ul (0-0.8) 05/11/18 05:47 Absolute Eos (auto) 0 10^3/ul (0-0.6) 05/11/18 05:47 Absolute Basos (auto) 0 10^3/ul (0-0.2) 05/11/18 05:47 Absolute Nucleated RBC 0 10^3/ul 05/11/18 05:47 Nucleated RBC % 0 05/11/18 05:47 INR (Anticoag Therapy) 1.50 (0.77-1.02) H 05/12/18 09:00 Sodium 138 mmol/L (135-145) 05/12/18 05:16 Potassium 4.5 mmol/L (3.5-5.0) 05/12/18 05:16 Chloride 108 mmol/L (101-111) 05/12/18 05:16 Carbon Dioxide 23 mmol/L (22-32) 05/12/18 05:16 Anion Gap 7 mmol/L (2-11) 05/12/18 05:16 BUN 70 mg/dL (6-24) H 05/12/18 05:16 Creatinine 2.72 mg/dL (0.67-1.17) H 05/12/18 05:16 Est GFR ( Amer) 28.0 (>60) 05/12/18 05:16 Est GFR (Non-Af Amer) 23.1 (>60) 05/12/18 05:16 BUN/Creatinine Ratio 25.7 (8-20) H 05/12/18 05:16 Glucose 106 mg/dL (70-100) H 05/12/18 05:16 Calcium 8.2 mg/dL (8.6-10.3) L 05/12/18 05:16 Total Bilirubin 0.30 mg/dL (0.2-1.0) 05/08/18 16:47 AST 20 U/L (13-39) 05/08/18 16:47 ALT 20 U/L (7-52) 05/08/18 16:47 Alkaline Phosphatase 75 U/L (34-104) 05/08/18 16:47 Total Protein 5.8 g/dL (6.4-8.9) L 05/08/18 16:47 Albumin 3.1 g/dL (3.2-5.2) L 05/08/18 16:47 Globulin 2.7 g/dL (2-4) 05/08/18 16:47 Albumin/Globulin Ratio 1.1 (1-3) 05/08/18 16:47
== END 2018-05-12 14:00 | DRG 467 ==
LOC: SSU 05-08 14:29
PROVIDERS: ADMIT Internal Medicine; ATTEND Internal Medicine
PROC: 0SP90JZ Removal of Synthetic Substitute from Right Hip Joint, Open Approach (ICD-10-PCS; 2018-05-10)
PROC: 0SR9029 Replacement of Right Hip Joint with Metal on Polyethylene Synthetic Substitute, Cemented, Open Approach (ICD-10-PCS; principal; 2018-05-10 13:00)
PROC: DPY97ZZ Contact Radiation of Femur (ICD-10-PCS; 2018-05-11)
DX: T84.030A Mechanical loosening of internal right hip prosthetic joint, initial encounter (principal); S73.004A Unspecified dislocation of right hip, initial encounter; I13.0 Hypertensive heart and chronic kidney disease with heart failure and stage 1 through stage 4 chronic kidney disease, or unspecified chronic kidney disease; I50.30 Unspecified diastolic (congestive) heart failure; D62 Acute posthemorrhagic anemia; X58.XXXA Exposure to other specified factors, initial encounter; N18.3 Chronic kidney disease, stage 3 (moderate); I25.10 Atherosclerotic heart disease of native coronary artery without angina pectoris; M10.9 Gout, unspecified; N40.0 Benign prostatic hyperplasia without lower urinary tract symptoms; E78.5 Hyperlipidemia, unspecified; E66.9 Obesity, unspecified; Z96.643 Presence of artificial hip joint, bilateral; M61.551 Other ossification of muscle, right thigh; G47.33 Obstructive sleep apnea (adult) (pediatric); Y79.2 Prosthetic and other implants, materials and accessory orthopedic devices associated with adverse incidents; G62.9 Polyneuropathy, unspecified; I49.5 Sick sinus syndrome; I44.0 Atrioventricular block, first degree; L71.9 Rosacea, unspecified; Z95.5 Presence of coronary angioplasty implant and graft; Z82.49 Family history of ischemic heart disease and other diseases of the circulatory system; Z95.2 Presence of prosthetic heart valve; Z95.1 Presence of aortocoronary bypass graft; Z68.35 Body mass index [BMI] 35.0-35.9, adult; Y92.89 Other specified places as the place of occurrence of the external cause; Z79.01 Long term (current) use of anticoagulants; Z79.82 Long term (current) use of aspirin
CPT/HCPCS: 36415; 77014; 80048; 80053; 85014; 85018; 85025; 85049; 85610; 87070; 87073; 87205; 87641; 88300; 93005; A9270-GY; C1713; C1776; G8978-GP-CL; G8979-GP-CI; G8987-GO-CK; G8988-GO-CI; J0690; J1100; J1644; J2250; J2405; J2704; J2710; J3010; J3370; J7512

== ENCOUNTER 2020-11-26 09:26 | Inpatient (IN) ==
[~2020-11-26 09:26] MED LIST changes: -Acetaminophen TAB* 325 MG PO ONE; +Buffered Lidocaine 1% SYRIN 1 ml INTRADERM ONE; -Buffered Lidocaine 1% SYRIN* 1 ML/SYRINGE INTRADERM ONE; +Dexamethasone IV 4 MG/ML VIAL 1 ml VIAL IV SLOW PU ONE; +Famotidine IV 10 MG/ML 2 ml VIAL (20 mg) IV ONE; -Famotidine IV* 10 MG/ML 2 ML (20 mg) IV ONE; -Gabapentin CAP(*) 300 MG PO ONE; -Lactated Ringers 1000 ML Bag* 1,000 ML IV SCH; +Lactated Ringers 1000 ml BAG 1,000 ML IV SCH; -Naproxen TAB* 250 MG PO ONE
[2020-11-26] MEDS ORDERED: Dexamethasone IV 4 MG/ML VIAL 1 ml VIAL ONE (09:47)
[2020-11-26] MEDS ORDERED: Famotidine IV 10 MG/ML 2 ml VIAL (20 mg) ONE (09:47)
[2020-11-26] MEDS ORDERED: ceFAZolin 2 GM in NS PREMIX 2 GM/100 ML BAG IVPB ONE (09:47)
[2020-11-26] MEDS ORDERED: Midazolam 2 mg/2 ml VIAL 1 mg/ml 2 ml VIAL (2 mg) ONE (10:29)
[2020-11-26] MEDS ORDERED: Propofol 10 mg/ml 100 ML BTL 100 ML ONE (10:34)
[2020-11-26] MEDS ORDERED: Phenylephrine 40 mcg/mL 10mL (400mcg) SYRINGE ONE (10:58)
[2020-11-26] MEDS ORDERED: Vancomycin 1,000 MG VIAL ONE (12:13)
[2020-11-26] MEDS ORDERED: Propofol 10 MG/ML 20 ML BTL ONE ×2 (12:57→13:09)
[2020-11-26] MEDS ORDERED: Ondansetron 4 mg VIAL 2 MG/ML 2 ml VIAL IV PRN ×2 (13:52→13:53)
[2020-11-26] MEDS ORDERED: diPHENhydraMINE 25 mg TAB PO PRN (13:53)
[2020-11-26] MEDS ORDERED: Lactulose 30 ml UDC PO PRN (13:53)
[2020-11-26] MEDS ORDERED: Magnesium Hydroxide LIQ 30 ML UDC PO PRN (13:53)
[2020-11-26] MEDS ORDERED: diPHENhydraMINE IV 50 MG/ML 1 ml VIAL (BENADRYL) IV PRN (13:53)
[2020-11-26] MEDS ORDERED: Morphine 2 MG/ML SYRINGE IV PRN (13:53)
[2020-11-26] MEDS ORDERED: Ondansetron ODT 4 mg TAB 4 MG TAB PO PRN (13:53)
[2020-11-26] MEDS ORDERED: fentaNYL 100 mcg/2 ml 50 MCG/ML VIAL ONE (14:13)
[2020-11-26] MEDS: fentaNYL 100 mcg/2 ml 50 MCG/ML VIAL IV PRN ×2 (14:15→14:38)
[2020-11-26] MEDS: Lactated Ringers 1000 ml BAG 1,000 ML IV SCH (15:26)
[2020-11-26 18:40] LABS: Hematocrit 29 % (42-52); Hemoglobin 9.5 g/dL (14.0-18.0)
[2020-11-26] MEDS: ceFAZolin 1 GM ADVAN 1 GM in NS 0.9% 50 ML 50 ML IVPB SCH (19:46)
[2020-11-26] MEDS: Magnesium Hydroxide LIQ 30 ML UDC PO SCH (23:07)
[2020-11-27] MEDS: Lactated Ringers 1000 ml BAG 1,000 ML IV SCH (02:32)
[2020-11-27] MEDS: ceFAZolin 1 GM ADVAN 1 GM in NS 0.9% 50 ML 50 ML IVPB SCH ×2 (03:47→11:21)
[2020-11-27 07:24] LABS: Hematocrit 25 % (42-52); Hemoglobin 8.4 g/dL (14.0-18.0); Platelet Count 180 10^3/uL (150-450)
[2020-11-27 07:47] LABS: Calcium 9.2 mg/dL (8.6-10.3); Potassium 4.6 mmol/L (3.5-5.0)
[2020-11-27] MEDS ORDERED: Flu vaccine *QUAD* 2021-22* 0.5 ML SYRINGE IM ONE (09:00)
[2020-11-27] MEDS: Vitamin THERAPEUTIC TAB PO SCH (09:01)
[2020-11-27] MEDS: Magnesium Hydroxide LIQ 30 ML UDC PO SCH ×2 (09:01→21:51)
[2020-11-27] MEDS: Aspirin EC 81 mg TAB.EC (enteric coated) PO SCH (09:01)
[2020-11-27] MEDS: CMCS:Febuxostat 40 mg TAB (NF) PO SCH (09:02)
[2020-11-27 12:46] LABS: ABS Lymphocytes 0.6 10^3/ul (1.0-4.8); ABS Monocytes 0.9 10^3/ul (0-0.8); ABS Neutrophils 10.6 10^3/ul (1.5-7.7); Hematocrit 24 % (42-52); Lymphocyte % 5.3 %; Mean Corpuscular HGB Conc 34 g/dL (31-36); Mean Corpuscular Hemoglobin 31 pg (27-31); Mean Corpuscular Volume 91 fL (80-94); Mean Platelet Volume 8.1 fL (7.4-10.4); Platelet Count 177 10^3/uL (150-450); Red Blood Count 2.62 10^6 /uL (4.18-5.48); Red Cell Distribution Width 14 % (10-15); White Blood Count 12.1 10^3/uL (3.5-10.8)
[2020-11-27 19:34] LABS: Albumin 3.4 g/dL (3.2-5.2); Albumin/Globulin Ratio 1.6 (1-3); Calcium 8.7 mg/dL (8.6-10.3); Globulin 2.1 g/dL (2-4); Magnesium 2.1 mg/dL (1.9-2.7); Potassium 4.9 mmol/L (3.5-5.0); Total Bilirubin 0.2 mg/dL (0.2-1.0); Total Protein 5.5 g/dL (6.4-8.9)
[2020-11-27 19:48] LABS: TSH Ultra Thyroid Stim Horm 0.13 mcIU/mL (0.34-5.60)
[2020-11-27] MEDS ORDERED: Patiromer POWDER 8.4 GM PAK PO ONE (21:00)
[2020-11-27 23:36] LABS: ABS Lymphocytes 0.8 10^3/ul (1.0-4.8); ABS Monocytes 0.9 10^3/ul (0-0.8); ABS Neutrophils 8.5 10^3/ul (1.5-7.7); Eosinophil % 0.1 %; Hematocrit 27 % (42-52); Hemoglobin 9.1 g/dL (14.0-18.0); Lymphocyte % 7.8 %; Mean Corpuscular HGB Conc 34 g/dL (31-36); Mean Corpuscular Hemoglobin 31 pg (27-31); Mean Corpuscular Volume 89 fL (80-94); Mean Platelet Volume 7.8 fL (7.4-10.4); Platelet Count 154 10^3/uL (150-450); Red Blood Count 2.98 10^6 /uL (4.18-5.48); Red Cell Distribution Width 15 % (10-15); White Blood Count 10.2 10^3/uL (3.5-10.8)
[2020-11-28 06:29] LABS: Calcium 8.8 mg/dL (8.6-10.3)
[2020-11-28 06:33] LABS: Mean Platelet Volume 8.4 fL (7.4-10.4); Platelet Count 136 10^3/uL (150-450)
[2020-11-28 06:38] LABS: Potassium 5.3 mmol/L (3.5-5.0)
[2020-11-28] MEDS ORDERED: Sodium Polystyrene ORAL.SUSP 15 GM/60 ML BTL PO ONE (08:02)
[2020-11-28] MEDS: CMCS:Febuxostat 40 mg TAB (NF) PO SCH (09:17)
[2020-11-28] MEDS: Aspirin EC 81 mg TAB.EC (enteric coated) PO SCH (09:18)
[2020-11-28] MEDS: Vitamin THERAPEUTIC TAB PO SCH (09:18)
[2020-11-28] MEDS: Magnesium Hydroxide LIQ 30 ML UDC PO SCH (09:20)
[2020-11-28 09:28] LABS: ABS Lymphocytes 1.3 10^3/ul (1.0-4.8); ABS Monocytes 0.6 10^3/ul (0-0.8); ABS Neutrophils 8.1 10^3/ul (1.5-7.7); Eosinophil % 0.4 %; Hematocrit 29 % (42-52); Hemoglobin 9.7 g/dL (14.0-18.0); Lymphocyte % 13.1 %; Mean Corpuscular HGB Conc 34 g/dL (31-36); Mean Corpuscular Hemoglobin 31 pg (27-31); Mean Corpuscular Volume 91 fL (80-94); Mean Platelet Volume 8.2 fL (7.4-10.4); Platelet Count 173 10^3/uL (150-450); Red Blood Count 3.15 10^6 /uL (4.18-5.48); Red Cell Distribution Width 15 % (10-15); White Blood Count 10.1 10^3/uL (3.5-10.8)
[2020-11-28 09:32] LABS: INR 1.21 (0.86-1.15)
[2020-11-28 09:37] LABS: Calcium 9.2 mg/dL (8.6-10.3); Potassium 4.9 mmol/L (3.5-5.0)
[2020-11-28 13:21] LABS: Hepatitis B Surface Antigen Nonreactive (Nonreactive)
[2020-11-28 13:29] LABS: HIV 4th Generation Nonreactive (Nonreactive)
[2020-11-28 13:39] LABS: Hepatitis C Antibody Negative (Negative)
[2020-11-28 16:10] VITALS: BP 142/66
== END 2020-11-28 19:30 | disposition home or self-care (01) | DRG 467 ==
LOC: OR 09:26 → SSU 09:26
PROVIDERS: ADMIT Orthopaedic Surgery; ATTEND Orthopaedic Surgery

== ENCOUNTER 2023-07-21 17:17 | Inpatient (IN) ==
[2023-07-21 18:54] LABS: ABS Lymphocytes 0.3 10^3/uL (1.0-4.8); ABS Monocytes 0.3 10^3/uL (0.0-1.1); ABS Neutrophils 2.3 10^3/uL (1.5-7.6); ABS Nucleated RBC 0.01 10^3/ul; Hematocrit 31.3 % (38-53); Hemoglobin 10.9 g/dL (13.2-16.3); Lymphocyte % 10.3 %; Mean Corpuscular Hemoglobin 34.8 pg (27-33); Mean Corpuscular Hgb Conc 34.8 g/dL (31-36); Mean Platelet Volume 8.3 fL (7.5-11.2); Nucleated Red Blood Cells % 0.2 %/100WBC (0.0-0.8); Platelet Count 116 10^3/uL (150-450); Red Blood Count 3.13 10^6/uL (4.06-5.63); Red Cell Distribution Width 15.9 % (12-17); White Blood Count 2.8 10^3/uL (3.6-10.2)
[2023-07-21 19:30] LABS: Albumin 3.5 g/dL (3.2-5.2); Albumin/Globulin Ratio 1.7 (1-3); C Reactive Protein 153.57 mg/L (<8.01); Creatinine, Serum 5.88 mg/dL (0.67-1.17); Globulin 2.1 g/dL (2-4); Potassium 3.9 mmol/L (3.5-5.0); Total Bilirubin 0.7 mg/dL (0.2-1.0); Total Protein 5.6 g/dL (6.4-8.9); eGFR CKD-EPI 9.3 (>60)
[2023-07-21 20:09] LABS: High Sensitivity Troponin 1 Hr 147 pg/mL (<20)
[2023-07-21] MEDS ORDERED: Acetaminophen IV 1 GM/100ML 1,000 MG/100 ML BAG IV PRN (21:48)
[2023-07-21] MEDS ORDERED: Polyethylene Glycol 3350 17 GM PACKET PO PRN (21:52)
[2023-07-21] MEDS ORDERED: Senna TAB 8.6 mg TAB PO PRN (21:52)
[2023-07-21] MEDS ORDERED: Ondansetron 4 mg VIAL 2 MG/ML 2 ml VIAL IV PRN (21:52)
[2023-07-21] MEDS ORDERED: Zosyn per Pharmacy NOTE FOLLOW UP SCH (23:45)
[2023-07-22] MEDS: Piperacillin/Tazobac 3.375 BAG 3.375 GM/100 ML BAG IV ONE (00:36)
[2023-07-22] MEDS: ZOSYN 3.375 GM Q12H per EXTENDED INFUSION IV SCH (05:09)
[2023-07-22 05:23] LABS: Hematocrit 30.1 % (38-53); Hemoglobin 10.2 g/dL (13.2-16.3); Mean Corpuscular Hemoglobin 33.9 pg (27-33); Mean Corpuscular Hgb Conc 33.8 g/dL (31-36); Mean Corpuscular Volume 100.4 fL (80-97); Red Cell Distribution Width 15.2 % (12-17); White Blood Count 2.8 10^3/uL (3.6-10.2)
[2023-07-22 05:53] LABS: ALT 55 U/L (7-52); AST 83 U/L (13-39); Albumin 3.4 g/dL (3.2-5.2); Albumin/Globulin Ratio 1.8 (1-3); Alkaline Phosphatase 43 U/L (35-149); Anion Gap 11 mmol/L (2-16); Blood Urea Nitrogen 46 mg/dL (6-24); CO2 Carbon Dioxide 28 mmol/L (22-32); Calcium 8.7 mg/dL (8.6-10.3); Chloride 98 mmol/L (101-111); Creatinine, Serum 7.22 mg/dL (0.67-1.17); Globulin 1.9 g/dL (2-4); Glucose 98 mg/dL (70-100); Magnesium 2.4 mg/dL (1.9-2.7); Sodium 137 mmol/L (135-145); Total Bilirubin 0.7 mg/dL (0.2-1.0); Total Protein 5.3 g/dL (6.4-8.9); eGFR CKD-EPI 7.2 (>60)
[2023-07-22 06:33] LABS: ABS Lymphocytes 0.3 10^3/uL (1.0-4.8); ABS Monocytes 0.3 10^3/uL (0.0-1.1); ABS Neutrophils 2.1 10^3/uL (1.5-7.6); Lymphocyte % 11.3 %; Mean Platelet Volume 8.3 fL (7.5-11.2); Nucleated Red Blood Cells % 0.2 %/100WBC (0.0-0.8); Platelet Count 91 10^3/uL (150-450)
[2023-07-22 06:34] LABS: Macrocytosis 1+
[2023-07-22] MEDS: Heparin 5000 UNITS/ML 1 mL VIAL SUBCUT SCH (08:41)
[2023-07-22] MEDS: Aspirin EC 81 mg TAB.EC (enteric coated) PO SCH (08:41)
[2023-07-22] MEDS ORDERED: Heparin 5000 UNITS/ML 1 mL VIAL SUBCUT SCH (09:00)
[2023-07-22 09:32] LABS: Phosphorus 4.3 mg/dL (2.5-5.0)
[2023-07-22 11:39] LABS: Activated Partial Thrombo Time 27.5 seconds (26.0-38.0); INR 1.2 (0.83-1.13)
[2023-07-22 12:28] LABS: Vitamin B12 > 1450 pg/mL (180-914)
[2023-07-22 14:20] LABS: RBC Parasite Smear No Parasites Seen (No Parasite)
[2023-07-22] MEDS ORDERED: NS 0.9% 1000 ml BAG 100 ML IV PRN (22:21)
[2023-07-22] MEDS ORDERED: NS 0.9% 1000 ml BAG 200 ML IV PRN (22:21)
[2023-07-23 02:17] LABS: Hepatitis B Surface Ab Not Immune (Immune)
[2023-07-23 06:50] LABS: ABS Lymphocytes 0.7 10^3/uL (1.0-4.8); ABS Monocytes 0.6 10^3/uL (0.0-1.1); ABS Nucleated RBC 0.01 10^3/ul; Anisocytosis 1+; Eosinophil % 0.3 %; Hematocrit 28.6 % (38-53); Lymphocyte % 31.4 %; Mean Corpuscular Hemoglobin 34.4 pg (27-33); Mean Corpuscular Hgb Conc 34.8 g/dL (31-36); Mean Platelet Volume 9.6 fL (7.5-11.2); Nucleated Red Blood Cells % 0.4 %/100WBC (0.0-0.8); Platelet Count 57 10^3/uL (150-450); Red Blood Count 2.89 10^6/uL (4.06-5.63); Red Cell Distribution Width 16.1 % (12-17); White Blood Count 2.3 10^3/uL (3.6-10.2)
[2023-07-23 06:52] LABS: Calcium 8.7 mg/dL (8.6-10.3); Creatinine, Serum 8.9 mg/dL (0.67-1.17); Magnesium 2.5 mg/dL (1.9-2.7); Phosphorus 4.3 mg/dL (2.5-5.0); Potassium 3.9 mmol/L (3.5-5.0); eGFR CKD-EPI 5.6 (>60)
[2023-07-23] MEDS: Heparin 1,000 UNIT/ML 10 ml (10,000 UNITS) CATHLAB/DIALYSIS DIALYSIS PRN (08:25)
[2023-07-23 09:20] LABS: Albumin 3.1 g/dL (3.2-5.2); Albumin/Globulin Ratio 1.6 (1-3); Direct Bilirubin 0.1 mg/dL (0.03-0.18); Globulin 1.9 g/dL (2-4); Indirect Bilirubin 0.5 mg/dL (0.3-1.0); Total Bilirubin 0.6 mg/dL (0.2-1.0)
[2023-07-23] MEDS: Albumin Human 25% 25 GM/100 ML BTL IV PRN (09:42)
[2023-07-23 12:15] LABS: Hepatitis B Surface Antigen Nonreactive (Nonreactive)
[2023-07-23 12:48] VITALS: BP 113/62
[2023-07-24 20:44] LABS: Anaplasma phagocytophilum Positive (Negative); B. miyamotoi PCR, B Negative (Negative); Babesia divergens/MO-1 Negative (Negative); Babesia ducani Negative (Negative); Ehrlichia chaffeensis Negative (Negative); Ehrlichia ewingii/canis Negative (Negative); Ehrlichia muris eauclairensis Negative (Negative)
== END 2023-07-23 14:10 | disposition home or self-care (01) | DRG 867 ==
LOC: ED 17:17 → EDHOLD 17:17 → SUATTDRO 21:52 → MEDTELE 23:03
PROVIDERS: ADMIT Internal Medicine; ATTEND Internal Medicine